=== PATIENT | female | born 2005 | race Two or more races ===

== ENCOUNTER 2025-08-05 12:53 | Outpatient (AMB) | payer OTHER, SELFPAY ==
--- NOTE | 2025-08-05 12:56 | A.OFFPC_ITS ---
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 issues Assess your risk for future medical problems Encourage a healthy lifestyle Update vaccinations and other preventive care services Help you get to know your provider in case of an illness Information Even if you feel fine, you should still see your provider for regular checkups. These visits can help you avoid problems in the future. For example, the only way to find out if you have high blood pressure is to have it checked regularly. High blood sugar and high cholesterol levels also may not have any symptoms in the early stages. A simple blood test can check for these conditions. There are specific times when you should see your provider or receive specific health screenings. The [place] Preventive Services Task Force publishes a list of recommended screenings. Below are screening guidelines for women ages 18 to 39. BLOOD PRESSURE SCREENING Your blood pressure should be checked at least once every 3 to 5 years if: Your blood pressure is in the normal range (top number less than 120 mm Hg and bottom number less than 80 mm Hg) You don't have risk factors for high blood pressure Ask your provider if you need your blood pressure checked more often if: The top number is 120 to 129 mm Hg or the bottom number is 70 to 79 mm Hg You have diabetes, heart disease, kidney problems, are overweight, or have certain other health conditions You have a first-degree relative with high blood pressure You are Black You had high blood pressure during a If the top number is 130 mm Hg or greater or the bottom number is 80 mm Hg or greater, this is considered stage 1 hypertension. Schedule an appointment with your provider to learn how you can reduce your blood pressure. Watch for blood pressure screenings in your area. Ask your provider if you can stop in to have your blood pressure checked. BREAST CANCER SCREENING Experts do not agree about the benefits of breast self-exams in finding breast cancer or saving lives. Talk to your provider about what is best for you. A screening mammogram is not recommended for most women under age 40. Your provider may discuss and recommend mammograms, MRI scans, or ultrasounds if you have an increased risk for breast cancer, such as: A mother or sister who had breast cancer at a young age (most often starting screening earlier than the age the close relative was diagnosed) You carry a high-risk genetic marker CERVICAL CANCER SCREENING Cervical cancer screening should start at age 21 years unless your provider advises otherwise. After the first test: Women ages 21 through 29 should have a Pap test every 3 years. Exoprts do not agree on whether HPV testing is recommended for this age group. Women ages 30 through 65 should be screened with either a Pap test every 3 years or the HPV test every 5 years or both tests every 5 years (called cotesting ). Women who have been treated for precancer (cervical dysplasia) should continue to have Pap tests for 20 years after treatment or until age 65, whichever is longer. If you have had your uterus and cervix removed (total hysterectomy), and you have not been diagnosed with cervical cancer or precancer (high grade cervical neoplasia), you do not need cervical cancer screening. CHOLESTEROL SCREENING Cholesterol screening should begin at: Age 45 for women with no known risk factors for coronary heart disease Age 20 for women with known risk factors for coronary heart disease Repeat cholesterol screening should take place: Every 5 years for women with normal cholesterol levels More often if changes occur in lifestyle (including weight gain and diet) More often if you have diabetes, heart disease, kidney problems, or certain other conditions DIABETES SCREENING You should be screened for diabetes starting at age 35 and then repeated every 3 years if you have no risk factors for diabetes. Screening may need to start earlier and be repeated more often if you have other risk factors for diabetes, such as: You have a first degree relative with diabetes. You are overweight or have obesity. You have high blood pressure, prediabetes, or a history of heart disease. Screening for diabetes should be done if you are planning to become and you are overweight and have other risk factors such as high blood pressure. DENTAL EXAM Go to the dentist once or twice every year for an exam and cleaning. Your dentist will evaluate if you need more frequent visits. EYE EXAM Have an eye exam every 5 to 10 years before age 40. If you have vision problems, have an eye exam every 2 years or more often if re commended by your provider. You should have an eye exam that includes an examination of your retina (back of your eye) at least every year if you have diabetes. IMMUNIZATIONS Commonly needed vaccines include: Flu shot: get one every year. COVID-19 vaccine: ask your provider what is best for you. Tetanus-diphtheria and acellular pertussis (Tdap) vaccine: have one at or after age 19 as one of your tetanus-diphtheria vaccines if you did not receive it as an adolescent. Tetanus-diphtheria: have a booster (or Tdap) every 10 years. Varicella vaccine: receive 2 doses if you never had chickenpox or the varicella vaccine. Hepatitis B vaccine: receive 2, 3, or 4 doses, depending on your exact circumstances. Measles, mumps, and rubella (MMR) vaccine: receive 1 to 2 doses if you are not already immune to MMR. Your provider can tell you if you are immune. Ask your provider about the human papillomavirus (HPV) vaccine if: You have not received the HPV vaccine in the past You have not completed the full vaccine series (you should catch up on this shot) Ask your provider if you should receive other immunizations if you have certain health problems that increase your risk for some diseases such as pneumonia. INFECTIOUS DISEASE SCREENING Women who are sexually active should be screened for chlamydia and gonorrhea up until age 25. Women 25 years and older should be screened for chlamydia and gonorrhea if at high risk. Screening for hepatitis C: All adults ages 18 to 79 should get a one-time test for hepatitis C. people should be screened at every . Screening for human immunodeficiency virus (HIV): All people ages 15 to 65 should get a one-time test for HIV. Depending on your lifestyle and medical history, you may also need to be screened for infections such as syphilis and HIV, as well as other infections. PHYSICAL EXAM All adults should visit their provider from time to time, even if they are healthy. The purpose of these visits is to: Screen for disease Assess your risk of future medical problems Encourage a healthy lifestyle Update your vaccinations and other preventive care services Maintain a relationship with a provider in case of an illness Your height, weight, and BMI should be checked at every exam. During your exam, your provider may ask you about: Depression and anxiety Diet and exercise Alcohol and tobacco use Safety issues, such as using seat belts, smoke detectors, and intimate partner violence Your medicines and risk for interactions SKIN SELF-EXAM Your provider may check your skin for signs of skin cancer, especially if you're at high risk, such as if you: Have had skin cancer before Have close relatives with skin cancer Have a weakened immune system OTHER SCREENING Talk with your provider about colon cancer screening if you have a strong family history of colon cancer or polyps, or if you have had inflammatory bowel disease or polyps yourself. Routine bone density screening of women under 40 is not recommended.
[2025-08-05 13:01] VITALS: BP 118/72; PULSE 86; RESP 12; TEMP 36.6; O2SAT 96; BMI 63.3
--- OUTSIDE RECORDS SUMMARY | 2025-08-05 13:08 | XMS_ITS | Encounter Summary ---
Author Organization [facility] Address [address] [place] [address] Phone Care Team Providers Care Behavioral Psychologist Name Role Phone Tej De Luna MD Primary Care Provider [phone] Encounter Details Date Type Department Care Team (Late st Contact Info) Description 07/17/2017 Conversion Encounter [facility] [address] [place] [address] Social History Tobacco Use Types Packs/Day Years Used Date Smoking Tobacco: Never Comments:Never smoker Comments Unknown Sex and Gender Information Value Date Recorded Sex Assigned at Not on file Legal Sex Female 5:11 PM EDT Gender Identity Female 09/15/2023 11:17 AM EDT Sexual Orientation Straight 07/15/2019 9: 59 AM EDT documented as of this encounter Plan of Treatment Not on file documented as of this encounter Visit Diagnoses Not on filedocumented in this encounter Care Teams Behavioral Psychologist Relationship Specialty Start Date End Date Tej De Luna MD [address] [place] [address] PCP - General Pediatrics 01/25/21 03/25/24 documented as of this encounter
--- OUTSIDE RECORDS SUMMARY | 2025-08-05 13:08 | XMS_ITS | Encounter Summary ---
Author Organization [facility] Address [address] [place], [place] [id number] Phone Care Team Providers Care Pocket Creaser Name Role Phone Tej De Luna MD Primary Care Provider [phone] Encounter Details Date Type Department Care Team (Late st Contact Info) Description 01/01/[address] [facility] [place] Family Medicine [address] [place] [address] Family Medicine, Physician [address] [place], [place] [address] Social History Tobacco Use Types Packs/Day Years Used Date Smoking Tobacco: Never Assessed Comments Unknown Sex and Gender Information Value Date Recorded Sex Assigned at Not on file Legal Sex Female 5:11 PM EDT Gender Identity Female 09/15/2023 11:17 AM EDT Sexual Orientation Straight 07/15/2019 9: 59 AM EDT documented as of this encounter Plan of Treatment Not on file documented as of this encounter Visit Diagnoses Not on filedocumented in this encounter Care Teams Pocket Creaser Relationship Specialty Start Date End Date Tej De Luna MD [address] [place] [address] [place] [id number] PCP - General Pediatrics 01/25/21 03/25/24 documented as of this encounter
--- OUTSIDE RECORDS SUMMARY | 2025-08-05 13:08 | XMS_ITS | Encounter Summary ---
Author Organization [facility] Address [address] [place], [place] [id number] Phone Care Team Providers Care Bulk Plant Supervisor Name Role Phone Tej De Luna MD Primary Care Provider [phone] Encounter Details Date Type Department Care Team (Late st Contact Info) Description 05/12/2015 Documentation [facility] [place] [address] [place] [address] Family Medicine, Physician [address] [place], [place] [address] Social History Tobacco Use Types Packs/Day Years [...] on filedocumented in this encounter Care Teams Bulk Plant Supervisor Relationship Specialty Start Date End Date Tej De Luna MD [address] [place] [address] [place] [address] PCP - General Pediatrics 01/25/21 03/25/24 documented as of this encounter
--- OUTSIDE RECORDS SUMMARY | 2025-08-05 13:08 | XMS_ITS | Encounter Summary ---
Author Organization [facility] Address [address] [place], [place] [address] Phone Care Team Providers Care Tire Beader Maker Name Role Phone Tej De Luna MD Primary Care Provider [phone] Encounter Details Date Type Department Care Team (Late st Contact Info) Description 01/01/2013 Documentation [facility] [place] Family Medicine [address] [place] [address] Family Medicine, Physician [address] [place], [place] [address] Social History Tobacco Use Types Packs/Day Years [...] on filedocumented in this encounter Care Teams Tire Beader Maker Relationship Specialty Start Date End Date Tej De Luna MD [address] [place] [address] [place] [address] PCP - General Pediatrics 01/25/21 03/25/24 documented as of this encounter
--- OUTSIDE RECORDS SUMMARY | 2025-08-05 13:08 | XMS_ITS | Encounter Summary ---
Author Organization [facility] Address [address] [place], [place] [address] Phone Care Team Providers Care Security Assistant Name Role Phone Tej De Luna MD Primary Care Provider [phone] Encounter Details Date Type Department Care Team (Late st Contact Info) Description 11/07/2014 Documentation [facility] Family Medicine [address] [place] [address] Family Medicine, Physician [address] [place], [place] [address] Social History Tobacco Use Types Packs/Day Years [...] on filedocumented in this encounter Care Teams Security Assistant Relationship Specialty Start Date End Date Tej De Luna MD [address] [place] [address] [place] [address] PCP - General Pediatrics 01/25/21 03/25/24 documented as of this encounter
--- OUTSIDE RECORDS SUMMARY | 2025-08-05 13:08 | XMS_ITS | Encounter Summary ---
Author Organization [facility] Address [address] [place], [place] [phone] Phone Care Team Providers Care Customs Verifier Name Role Phone Tej De Luna MD Primary Care Provider [phone] Encounter Details Date Type Department Care Team (Late st Contact Info) Description 02/14/2014 [place]ation [facility] [place] [address] [place] [address] Family Medicine, Physician [address] [place], [place] [address] Social History Tobacco Use Types Packs/Day Years [...] on filedocumented in this encounter Care Teams Customs Verifier Relationship Specialty Start Date End Date Tej De Luna MD [address] [place] [address] [place] [address] PCP - General Pediatrics 01/25/21 03/25/24 documented as of this encounter
--- OUTSIDE RECORDS SUMMARY | 2025-08-05 13:08 | XMS_ITS | Encounter Summary ---
Author Organization [facility] Address [address] [place] [address] Phone Care Team Providers Care Mill Manager Name Role Phone Tej De Luna MD Primary Care Provider [phone] Encounter Details Date Type Department Care Team (Late st Contact Info) Description 07/23/2017 Documentation [facility] [place] [address] [place] [address] Family Medicine, Physician [address] [place] [address] Social History Tobacco Use Types Packs/Day Years [...] on filedocumented in this encounter Care Teams Mill Manager Relationship Specialty Start Date End Date Tej De Luna MD [address] [place] [address] [place] [address] PCP - General Pediatrics 01/25/21 03/25/24 documented as of this encounter
--- OUTSIDE RECORDS SUMMARY | 2025-08-05 13:08 | XMS_ITS | Encounter Summary ---
Author Organization [facility] Address [address] [place], [place] [address] Phone Care Team Providers Care Orchard Sprayer Name Role Phone Tej De Luna MD Primary Care Provider [phone] Encounter Details Date Type Department Care Team (Late st Contact Info) Description 08/14/2011 Documentation [facility] [place] [address] [place] [address] Family Medicine, Physician [address] [place], [place] [address] Social History Tobacco Use Types Packs/Day Years [...] on filedocumented in this encounter Care Teams Orchard Sprayer Relationship Specialty Start Date End Date Tej De Luna MD [address] [place] [address] [place] [address] PCP - General Pediatrics 01/25/21 03/25/24 documented as of this encounter
--- OUTSIDE RECORDS SUMMARY | 2025-08-05 13:08 | XMS_ITS | Encounter Summary ---
Author Organization [facility] Address [address] [place] [address] Phone Care Team Providers Care Service Station Helper Name Role Phone Tej De Luna MD Primary Care Provider [phone] Encounter Details Date Type Department Care Team (Late st Contact Info) Description 07/23/2017 [place]ation [facility] [place] [address] [place] [address] Family Medicine, Physician [address] [place] [address] Social History Tobacco Use Types Packs/Day Years [...] on filedocumented in this encounter Care Teams Service Station Helper Relationship Specialty Start Date End Date Tej De Luna MD [address] [place] [address] [place] [address] PCP - General Pediatrics 01/25/21 03/25/24 documented as of this encounter
--- OUTSIDE RECORDS SUMMARY | 2025-08-05 13:08 | XMS_ITS | Encounter Summary ---
Author Organization [facility] Address [address] [place], [place] [address] Phone Care Team Providers Care Sorter Packer Name Role Phone Tej De Luna MD Primary Care Provider [phone] Encounter Details Date Type Department Care Team (Late st Contact Info) Description 02/04/2013 Documentation [facility] [place] [address] [place] [address] Family Medicine, Physician [address] [place], [place] [address] Social History Tobacco Use Types Packs/Day Years [...] on filedocumented in this encounter Care Teams Sorter Packer Relationship Specialty Start Date End Date Tej De Luna MD [address] [place] [address] [place] [address] PCP - General Pediatrics 01/25/21 03/25/24 documented as of this encounter
--- OUTSIDE RECORDS SUMMARY | 2025-08-05 13:08 | XMS_ITS | Clinical Summary ---
Author Organization [facility] Address [address] [place] [address] Phone Care Team Providers Care Wash Mill Operator Name Role Phone Unavailable Primary Care Provider Unavailabl e Allergies Active Allergy Reactions Criticality Noted Date Comments Amoxicillin Other reaction(s): Medications levothyroxine 175 MCG tablet Take 175 mcg by mouth once daily. 1 Active Alcohol Swabs (B-D SINGLE USE SWABS REGULAR) pads TO CLEAN SKIN BEFORE BLOOD GLUCOSE CHECKS. MAX 6 TIMES A DAY 1 Active Blood Glucose Monitoring Suppl (FreeStyle Lite) device 1 Active FREESTYLE LITE test strip 1 Active Lancets (freestyle) lancets 1 Active Trulicity 1.5 MG/0.5ML solution pen-injector ADMINISTER 1.5 MG UNDER THE SKIN EVERY WEEK. ROTATE INJECTION SITES 2 Active Ventolin HFA 108 (90 Base) MCG/ACT inhalerIndication s:Mild intermittent asthma without complication Inhale 2 puffs every 4 (four) hours as needed for wheezing or shortness of breath. 1 Units 3 Active albuterol HFA (ProAir HFA) 108 (90 Base) MCG/ACT inhalerIndication s:Mild intermittent asthma without complication Inhale 2 puffs every 4 (four) hours as needed for wheezing or shortness of breath. 1 Units 3 Active ibuprofen 200 MG capsuleIndication s:Acute otitis externa of both ears, unspecified type 3-4 capsules every 8 hours as needed for pain 120 capsule 1 3 Active Active Problems Patient Care Coordination No te Formatting of this note migh t be different from the original. 09/20/20 Shira is but foster mother does not know. [facility] Problem Noted Date Diagnosed Date Acquired acanthosis nigricans 09/21/2022 Anemia 09/21/2022 Wears glasses 09/21/2022 Type 2 diabetes mellitus wit hout complication, without long-term current use of insulin 08/21/2021 Overview (08/21/2021): Diagnosed 08/2021. Followed by [facility]. Assessment & Plan (06/07/2022 10:05 AM EDT): See above- she will call Wally CAROLYN for FU Mixed hyperlipidemia 01/26/2019 Overview (01/26/2019): TG 155 (high 07/2018), HDL 35 (low 07/2018) Assessment & Plan (01/26/2019 1:35 PM EST): Saw Endo & referred to spring maker Healthy diet info given Exercise recommended They will follow in future DM screen was negative but Pt at high risk Obesity due to excess calories 01/26/2018 Overview (01/05/2020): Used to Followed at [facility]. had issues with no shows 12/2019: Wally did sleep study & was normal Assessment & Plan (01/27/2020 8:11 AM EST): Followed by Wally Lo started Topamax to see if it would decrease her appetite. Dose was increased at last Endo appt. Has FU next Month Patient does not think the Topamax did anything Assessment & Plan (01/26/2019 1:32 PM EST): No longer at [facility] Wally referred her to spring maker Assessment & Plan (01/26/2018 2:28 PM EST): Awesome weight loss since moving in with Great Aunt Mild intermittent asthma without complication Overview (01/26/2018): uses albuterol prn. Off pulmicort since 2012 Assessment & Plan (01/27/2020 8:11 AM EST): No issues in years Assessment & Plan (01/26/2018 2:51 PM EST): No issues Psychosocial stressors 01/26/2018 Overview (06/07/2022): Mom in custodial 2016. Pt living on her own w/ 18mo old as of Decided to keep her DCF social services aide for support Assessment & Plan (06/07/2022 10:06 AM EDT): She decided to keep her DCF social services aide for supports Also has help from her GM Assessment & Plan (08/10/2020 2:36 PM EDT): 08/10/2020 Kenzie Peterson [facility] [phone] calling for update - requested date of last PE, concerns listed, medications teen is taking, and current with vaccinations- information given Kenzie gave me a new contact number: for teen [phone] Assessment & Plan (05/10/2020 3:18 PM EDT): Will contact [facility] to find out what are legal responsibility of notification is. Patient is asking to not notify though I think it would be best to have DCF help Patient to get services & housing especially since she does not want her Maid Housekeeper to know Congenital hypothyroidism without goiter 010 Overview (01/26/2018): Followed by Lauro Lo. On Synthyroid Assessment & Plan (06/07/2022 10:05 AM EDT): Recently seen in ED for VGE All better- great! Discussed Endo FU- missed 2 appointments Gave her last no-show letter so she can call and book FU CAROLYN as she needs her synthroid RFed(ED gave her one mo supply); she was taking her brother's 125mcg dose for awhile Gave her options for adult Endo if unable to see Wally @ [facility] Has PE booked in AUG- discussed transition to adult care now that she is mom to an 18mo old Assessment & Plan (05/10/2020 3:18 PM EDT): Patient to call Endo today to report + Assessment & Plan (01/27/2020 8:10 AM EST): Saw Wally 12/2019. On synthyroid 125 mcg QD TFTs were repeated by Endo (I do not have the results). TFTs on 10/2019 had TSH off 13. Patient says she is compliant with meds but Endo suspects this may not be the case Patient says she forgets to take meds on weekends due to her schedule being off Assessment & Plan (01/26/2019 1:31 PM EST): Saw Wally 12/04/2018 TSH was 8 So synthyroid dose increased from 100 mcg QD to 125 mcg daily Repeat labs in 6-8 weeks from visit date Assessment & Plan (01/26/2018 2:37 PM EST): Saw Wally earlier this month. Synthroid dose needed to be decreased to 100 mcg. FU in 8 weeks Resolved Problems Problem Noted Date Diagnosed Date Resolved Date Encounter for counseling for care management of patient with chronic conditions and complex health needs using nurse-based model 05/10/2020 02/07/2022 Assessment & Plan (05/10/2020 3:22 PM EDT): Spoke with MEDICAL PROTECTIVE SIGNAL OPERATIONS SUPERVISOR who will help with transportation, housing, DCF, visit & endocrine visit Needs EVELYN urine STI screen & UHCG done in office this week Immunizations Immunization Administration Dates Next Due COVID-19 Pfizer, bivalent, 12+ years 09/13/2022 COVID-19 Pfizer, andreina-sucros e, 12+ years 06/07/2022 DTaP 5 10/21/2007, 4,2003,07/05,2003 H1N1 11/23/2009,10/23/2009 HPV Vaccine 9 Valent 08/07/2016,08/02/2015 Hep A, ped/adol 08/02/2015,11/07/2014 Hep B, ped/adol 2003,2003,2003 Hib (PRP-T) 10/01/2004, 3,2003,05/16 IPV 10/21/2007, 4,2003,05/16 Influenza Split 10/29/2012,10/16/2011,12/19/2010 Influenza, injectable, quadrivalent 11/07/2014 Influenza, injectable, quadr ivalent, preservative free 09/15/2023,09/13/2022,01/27/2020,01/26,01/26/2018,08/07/2016,08/02/2015 ,02/09/2014 Influenza, injectable, trivalent 020,11/23/2009,09/28/2008,10/21 MMR 03/05/2004 MMRV 10/21/2007 Meningococcal Conj (Menactra) MCV4P 07/15/2019,0 08/02/2015 Pneumococcal Conjugate 10/01/2004,2002,2003,05/16 Tdap 09/15/2020,08/02/2015 Varicella 03/05/2004 Family History Medical History Relation Name Comments Substance abuse Father Obesity Mother Obesity Sister Thyroid disease Sister Relation Name Status Comments Brother Dre Diane Alive Brother: Hypot hyroidism, obesity Daughter Anelis Viera Alive Father Father: Hyperte nsion, Diabetes mellitus Mother Alive Mother: Obesity Other Family history of Sudden /AK under 55, Family history of Diabetes mellitus, Family history of Migraines Paternal Grandmother Paterna l grandmother: Diabetes mellitus Sister Alive Sister: Hyperli pidemia, asthma Social History Tobacco Use Types Packs/Day Years Used Date Smoking Tobacco: Never Smokeless Tobacco: Never Comments:Never smoker Alcohol Use Standard Drinks/Week Comments No 0 (1 standard drink = 0.6 oz pur e alcohol) Hunger/Food Answer Date Recorded In the last 12 months, did y ou or your family ever eat less than you felt you should because there wasn't enough money for food? No 09/13/2022 Stable Housing Answer Date Recorded Are you worried that in the next 2 months you may not have stable housing? No 09/13/2022 Transportation Concerns Answer Date Rec orded In the last 12 months, have you or your family ever had to go without healthcare because you didn't have a way to get there? No 09/13/2022 Hazards in Home Answer Date Recorded Think about the place you li ve. Do you have problems with any of the following? Pests (mice or roaches), mold, no/not working smoke detectors, water leaks, no window guards. No 2021 Financing Utilities Answer Date Recorde d In the last 12 months, has t he electric, gas, oil, or water company threatened to shut off your services in your home? No 09/13/2022 Safety at Home Answer Date Recorded Are you or your family worried about feeling saf e in your home? No 09/13/2022 Outside Support Answer Date Recorded Do you feel that you need mo re support from other people or programs to help you care for yourself or your family? No 09/13/2022 Understanding Health Concerns Answer Da te Recorded Do you need help understandi ng your or your child's healthcare needs (diagnosis, medications, plan, etc.)? No 09/13/2022 Financing Health Concerns Answer Date R ecorded In the last 12 months, was t here a time when your child needed to see a doctor or get medications or supplies but could not because of cost? No 09/13/2022 Missing School or Work Answer Date Isaiah rded Did you or your child miss s chool or work because of a health problem that could have been avoided? No 09/13/2022 Comments No Sex and Gender Information Value Date Recorded Sex Assigned at Not on file Legal Sex Female 5:11 PM EDT Gender Identity Female 09/15/2023 11:17 AM EDT Sexual Orientation Straight 07/15/2019 9: 59 AM EDT Last Filed Vital Signs Vital Sign Reading Time Taken Comments Blood Pressure 124/73 08/02/2021 11:40 AM EDT Pulse 112 08/02/2021 11:40 AM EDT Temperature 37.2 C (99 F) 09/15/2023 1:37 PM EDT Respiratory Rate - - Oxygen Saturation - - Inhaled Oxygen Concentration - - Weight 163 kg (360 lb 3.2 oz) 09/15/2023 1:37 PM EDT Height 157.5 cm (5' 2 ) 09/13/2022 3:28 PM EDT Body Mass Index 65.88 09/13/2022 3:28 PM EDT Plan of Treatment Health Maintenance Due Date Last Done Comments Men B Vaccine (1 of 2 - Standard) 2019 Influenza Vaccines (#1) 2025 09/15/20 23, 09/13/2022, 09/15/2020, Additional history exists COVID-19 Vaccine (5 - 2024-2 6 season) 2025 09/13/2022, 06/07/2022, 04/22/2021, Additional history exists DTaP,Tdap,and Td Vaccines (8 - Td or Tdap) 09/15/2030 09/15/2020, 08/02/2015, 10/21/2007, Additional history exists Hepatitis B Vaccines Completed 2003, 2003, 2003 HIB Vaccines Completed 10/01/2004, 09/01, 2003, Additional history exists Pneumococcal Vaccine Completed 10/01/2004, 2003, 2003, Additional history exists IPV Vaccines Completed 10/21/2007, 05/2004, 2003, Additional history exists MMR Vaccines Completed 10/21/2007, 03/05/2004 Varicella Vaccines Completed 10/21/2007, 03/05/2004 Hepatitis A Vaccines Completed 08/02/2015, 11/07/20 14 HPV Vaccines Completed 08/07/2016, 08/02/2015 Meningococcal Vaccine Completed 07/15/2019, 015 Procedures * Due to [place] law, this organization might not be sharing sensitive test results. Procedure Name Priority Date/Time Associated Diagnosis Comments CHLAMYDIA AND GONORRHEA, AMPLIFIED Routine 09/13/2022 4:20 PM EDT Special screening examination for chlamydial disease from Last 3 Months or Most Recently Relevant to Health Maintenance Results * Due to [place] law, this organization might not be sharing sensitive test results. * Chlamydia and Gonorrhoea, Amplified (09/13/2022 4:20 PM EDT) Chlamydia Trachomatis, DNA Probe NEGATIVE (NEG) [facility] Comment: No Chlamydia Trachomatis RNA detected in this patient's sample (REFERENCE RANGE/NORMAL VALUE: NOT DETECTED) Note: This test uses crew truck driver- mediated amplification method to detect rRNA from C. Trachomatis URINE GC AMP PROBE NEGATIVE (NEG) [facility] Comment: No Neisseria Gonorrhoeae RNA detected in this patient's sample (REFERENCE RANGE/NORMAL VALUE: NOT DETECTED) NOTE: This test uses crew truck driver-mediated amplification method to detect rRNA from N.Gonorrhoeae. A negative result does not preclude infection. In the case of a negative urine result, testing of an endocervical(female) or urethral (male) specimen is recommended if there is high clinical suspicion of infection. Due to very high sensitivity of Nucleic Acid Amplification Test, false positive results may occur. Therefore, specimen handling is extremely important. In patients in whom the disease is unlikely, additional sample for testing should be considered after an initial positive result. The performance characteristics of this test have not been evaluated in children. The Aptima Combo2 assay is not intended for the evaluation of suspected sexual abuse or for other medico-legal indications. The ordering provider should assess if the patient had consensual sex without risk of sexual abuse. Consult the [facility] if needed. Contact phone number . Therapeutic failure or success cannot be determined with the Aptima Combo2 assay since nucleic acid may persist following appropriate antimicrobial therapy. The Centers for Disease Control and Prevention (CDC) recommends confirmatory retesting using culture or a different nucleic acid amplification test when positive results occur, if indicated. Testing performed or reported by [facility], a Service of [facility], [address] [place] [address] [facility] [address] Fernando Chaudhari MD, Milieu Coordinator [facility]# [id number] Urine (Urine) 09/13/2022 4:2 0 PM EDT 09/14/2022 1:56 PM EDT us Tej De Luna MD LAB MICROBIOLOGY - GENERAL ORDER SAYDA Final Result [facility] from Last 3 Months or Most Recently Relevant to Health Maintenance
--- OUTSIDE RECORDS SUMMARY | 2025-08-05 13:08 | XMS_ITS | Encounter Summary ---
Author Organization [facility] Address [address] [place] [phone] Phone Care Team Providers Care Critical Care Rn Name Role Phone Tej De Luna MD Primary Care Provider [phone] Reason for Visit * Reason Onset Date Comments Med Refill 08/17/2023 Encounter Details Date Type Department Care Team (Late st Contact Info) Description 08/17/2023 Refill [facility] [address] [place] [address] Tej De Luna MD [address] [place] [address] Mild intermittent asthma without complication Social History Tobacco Use Types Packs/Day Years [...] AM EDT documented as of this encounter Miscellaneous Notes * Telephone Encounter - Tawny Duffy LPN - 08/18/2023 12:29 PM EDT Spoke to patient she has appt on Friday this week with her Endocrine Doctor. She will call her Endocrine doctor today to order Blood Glucose supplies for her. Patient needs new Ventolin inhaler. Last pe 09/21 documented in this encounter Plan of Treatment Not on file documented as of this encounter Visit Diagnoses Diagnosis Mild intermittent asthma without complication documented in this encounter Care Teams Critical Care Rn Relationship Specialty Start Date End Date Tej De Luna MD [address] [place] [address] [place] [address] PCP - General Pediatrics 01/25/21 03/25/24 documented as of this encounter
--- OUTSIDE RECORDS SUMMARY | 2025-08-05 13:08 | XMS_ITS | Encounter Summary ---
Author Organization [facility] Address [address] [place], [place] [phone] Phone Care Team Providers Care Subgrade Roller Operator Name Role Phone Tej De Luna MD Primary Care Provider [phone] Encounter Details Date Type Department Care Team (Late st Contact Info) Description 05/12/2015 Documentation [facility] Family Medicine [address] [place] [address] Family Medicine, Physician [address] [place], [place] [address] Social History Tobacco Use Types Packs/Day Years [...] on filedocumented in this encounter Care Teams Subgrade Roller Operator Relationship Specialty Start Date End Date Tej De Luna MD [address] [place] [address] [place] [address] PCP - General Pediatrics 01/25/21 03/25/24 documented as of this encounter
--- OUTSIDE RECORDS SUMMARY | 2025-08-05 13:08 | XMS_ITS | Encounter Summary ---
Author Organization [facility] Address [address] [place] [address] Phone Care Team Providers Care Ui Ux Developer Name Role Phone Tej De Luna MD Primary Care Provider [phone] Reason for Visit * Reason Comments Med Refill Encounter Details Date Type Department Care Team (Late st Contact Info) Description 02/12/2018 Refill [facility] [place] [address] [place] [address] Leeann Martin MD [address] [place] [address] Mild intermittent asthma without complication (Primary Dx) Social History Tobacco Use Types Packs/Day Years Used Date Smoking Tobacco: Never Smokeless Tobacco: Never Comments:Never smoker Alcohol Use Standard Drinks/Week Comments No 0 (1 standard drink = 0.6 oz pur e alcohol) Comments Unknown Sex and Gender Information Value Date Recorded Sex Assigned at Not on file Legal Sex Female 5:11 PM EDT Gender Identity Female 09/15/2023 11:17 AM EDT Sexual Orientation Straight 07/15/2019 9: 59 AM EDT documented as of this encounter Miscellaneous Notes * Telephone Encounter - Tawny Duffy LPN - 02/13/2018 8:46 AM EDT MOm called back. Shira lost inhaler. Mom called back Shira asthma seems ok does cough on and off. * Telephone Encounter - Tawny Duffy LPN - 02/13/2018 8:38 AM EDT Left message for parent to call [facility]PA back. Need update on asthma. Last pe 01/18 Last refill 11/16 documented in this encounter Plan of Treatment Not on file documented as of this encounter Visit Diagnoses Diagnosis Mild intermittent asthma without complication- Primary documented in this encounter Care Teams Ui Ux Developer Relationship Specialty Start Date End Date Tej De Luna MD [address] [facility] [place] [address] PCP - General Pediatrics 01/25/21 03/25/24 documented as of this encounter
--- OUTSIDE RECORDS SUMMARY | 2025-08-05 13:08 | XMS_ITS | Encounter Summary ---
Author Organization [facility] Address [address] [place] [address] Phone Care Team Providers Care Cargo Surveyor Name Role Phone Tej De Luna MD Primary Care Provider [phone] Encounter Details Date Type Department Care Team (Late st Contact Info) Description 01/27/2020 Patient Outreach [facility] [address] [address] [address] Zimm[place] Social History Tobacco Use Types Packs/Day Years [...] there wasn't enough money for food? No 01/27/2020 Stable Housing Answer Date Recorded Are you worried that in the next 2 months you may not have stable housing? No 01/27/2020 Transportation Concerns Answer Date Rec orded In the last 12 months, have you or your family ever had to go without healthcare because you didn't have a way to get there? No 01/27/2020 Hazards in Home Answer Date Recorded Think about the place you li ve. Do you have problems with any of the following? Pests (mice or roaches), mold, no/not working smoke detectors, water leaks, no window guards. No 2019 Financing Utilities Answer Date Recorde d In the last 12 months, has t he electric, gas, oil, or water company threatened to shut off your services in your home? No 01/27/2020 Safety at Home Answer Date Recorded Are you or your family worried about feeling saf e in your home? No 01/27/2020 Outside Support Answer Date Recorded Do you feel that you need mo re support from other people or programs to help you care for yourself or your family? No 01/27/2020 Understanding Health Concerns Answer Da te Recorded Do you need help understandi ng your or your child's healthcare needs (diagnosis, medications, plan, etc.)? No 01/27/2020 Financing Health Concerns Answer Date R ecorded In the last 12 months, was t here a time when your child needed to see a doctor or get medications or supplies but could not because of cost? No 01/27/2020 Missing School or Work Answer Date Isaiah rded Did you or your child miss s chool or work because of a health problem that could have been avoided? No 01/27/2020 Comments No Sex and Gender Information Value Date Recorded Sex Assigned at Not on file Legal Sex Female 5:11 PM EDT Gender Identity Female 09/15/2023 11:17 AM EDT Sexual Orientation Straight 07/15/2019 9: 59 AM EDT documented as of this encounter Plan of Treatment Not on file documented as of this encounter Visit Diagnoses Not on filedocumented in this encounter Care Teams Cargo Surveyor Relationship Specialty Start Date End Date Tej De Luna MD [address] [place] [address] [place] [address] PCP - General Pediatrics 01/25/21 03/25/24 documented as of this encounter
--- OUTSIDE RECORDS SUMMARY | 2025-08-05 13:08 | XMS_ITS | Encounter Summary ---
Author Organization [facility] Address [address] [place], [place] [phone] Phone Care Team Providers Care Plumber Pipe Fitting Name Role Phone Tej De Luna MD Primary Care Provider [phone] Encounter Details Date Type Department Care Team (Late st Contact Info) Description 10/06/2014 Documentation [facility] Family Medicine [address] [place] [address] Family Medicine, Physician [address] [place], [place] [address] Social History Tobacco Use Types Packs/Day Years [...] on filedocumented in this encounter Care Teams Plumber Pipe Fitting Relationship Specialty Start Date End Date Tej De Luna MD [address] [place] [address] [place] [address] PCP - General Pediatrics 01/25/21 03/25/24 documented as of this encounter
--- OUTSIDE RECORDS SUMMARY | 2025-08-05 13:09 | XMS_ITS | Encounter Summary ---
Author Organization [facility] Address [address] [place], [place] [phone] Phone Care Team Providers Care Blending Tank Helper Name Role Phone Tej De Luan MD Primary Care Provider [phone] Encounter Details Date Type Department Care Team (Late st Contact Info) Description 12/22/2013 Documentation [facility] Family Medicine [address] [place] [address] Family Medicine, Physician [address] [place], [place] [address] Social History Tobacco Use Types Packs/Day Years [...] on filedocumented in this encounter Care Teams Blending Tank Helper Relationship Specialty Start Date End Date Tej De Luna MD [address] [place] [address] [place] [address] PCP - General Pediatrics 01/25/21 03/25/24 documented as of this encounter
--- OUTSIDE RECORDS SUMMARY | 2025-08-05 13:09 | XMS_ITS | Encounter Summary ---
Author Organization [facility] Address [address] [place], [place] [phone] Phone Care Team Providers Care Furniture Arranger Name Role Phone Tej De Luna MD Primary Care Provider [phone] Encounter Details Date Type Department Care Team (Late st Contact Info) Description 11/03/2013 Documentation [facility] [place] [address] [place] [address] Family Medicine, Physician [address] [place], [place] [address] Social History Tobacco Use Types Packs/Day Years [...] on filedocumented in this encounter Care Teams Furniture Arranger Relationship Specialty Start Date End Date Tej De Luna MD [address] [place] [address] [place] [address] PCP - General Pediatrics 01/25/21 03/25/24 documented as of this encounter
--- OUTSIDE RECORDS SUMMARY | 2025-08-05 13:09 | XMS_ITS | Encounter Summary ---
Author Organization [facility] Address [address] [place] [address] Phone Care Team Providers Care Scrap Sawyer Name Role Phone Tej De Luna MD Primary Care Provider [phone] Reason for Visit * Reason Comments Med Refill Encounter Details Date Type Department Care Team (Late st Contact Info) Description 07/20/2020 Refill [facility] [place] [address] [place] [address] Leeann Martin MD [address] [place] [address] Chlamydia Social History Tobacco Use Types Packs/Day Years [...] as of this encounter Visit Diagnoses Diagnosis Chlamydia Other specified chlamydial infection, in conditions classified elsewhere and of unspecified site documented in this encounter Care Teams Scrap Sawyer Relationship Specialty Start Date End Date Tej De Luna MD [address] [facility] [place]AMARIS Diaz [address] PCP - General Pediatrics 01/25/21 03/25/24 documented as of this encounter
--- OUTSIDE RECORDS SUMMARY | 2025-08-05 13:09 | XMS_ITS | Encounter Summary ---
Author Organization [facility] Address [address] [place], [place] [address] Phone Care Team Providers Care Scutcher Tender Name Role Phone Tej De Luna MD Primary Care Provider Encounter Details Date Type Department Care Team (Late st Contact Info) Description 12/17/2013 Documentation [facility] [place] [address] [place] [address] Family Medicine, Physician [address] [place], [place] [address] Social History Tobacco Use Types Packs/Day Years [...] on filedocumented in this encounter Care Teams Scutcher Tender Relationship Specialty Start Date End Date Tej De Luna MD [address] [place] [address] [place] [address] PCP - General Pediatrics 01/25/21 03/25/24 documented as of this encounter
--- OUTSIDE RECORDS SUMMARY | 2025-08-05 13:09 | XMS_ITS | Encounter Summary ---
Author Organization [facility] Address [address] [place], [place] [address] Phone Care Team Providers Care Health And Wellness Director Name Role Phone Tej De Luna MD Primary Care Provider [phone] Encounter Details Date Type Department Care Team (Late st Contact Info) Description 10/10/2014 Documentation [facility] [place] Family Medicine [address] [place] [address] Family Medicine, Physician [address] [place], [place] [address] Social History Tobacco Use Types Packs/Day Years [...] on filedocumented in this encounter Care Teams Health And Wellness Director Relationship Specialty Start Date End Date Tej De Luna MD [address] [place] [address] [place] [address] PCP - General Pediatrics 01/25/21 03/25/24 documented as of this encounter
== END 2025-08-05 13:39 | disposition home or self-care (01) ==
LOC: HO.HMCFM 12:54
PROVIDERS: PCP Nurse Practitioner Family; Visit Provider Nurse Practitioner Family
DX: Z00.00 Encounter for general adult medical examination without abnormal findings (principal); E03.9 Hypothyroidism, unspecified; Z76.89 Persons encountering health services in other specified circumstances; Z68.44 Body mass index [BMI] 60.0-69.9, adult; F43.10 Post-traumatic stress disorder, unspecified; Z97.5 Presence of (intrauterine) contraceptive device; Z87.898 Personal history of other specified conditions; Z23 Encounter for immunization

== ENCOUNTER 2025-08-05 12:53 | Outpatient (REF) | payer OTHER, SELFPAY ==
[2025-08-05 18:03] LABS: Mean Corpuscular Volume 89.4 fL (80.0-98.0); NRBC Abs Auto 0.000 X10*3/uL (0.0-0.012); NRBC Pct Auto 0.0 /100WBC (0.0-0.2)
[2025-08-05 18:06] LABS: Hematocrit 39.6 % (37.0-47.0); Hemoglobin 12.9 g/dl (12.0-16.0); Mean Corpuscular HGB Conc 32.6 g/dl (31.0-35.0); Mean Corpuscular Hemoglobin 29.1 pg (27.0-33.0); Platelet Count 161 X10*3/uL (160-400); Red Blood Count 4.43 X10*6/uL (4.20-5.50); White Blood Count 9.5 X10*3/uL (4.8-10.8)
[2025-08-05 18:08] LABS: Total Hemoglobin (HGBA1C) 3372.4477 umol/L
[2025-08-05 18:15] LABS: PLT ABN DIST 1
[2025-08-05 18:21] LABS: Appearance Urine Clear; Glucose Urine UA Negative (Negative); PH 7.5 (5.0-9.0); Specific Gravity - Urine 1.025 (1.005-1.025); UMIC TRIGGER UACC YES
[2025-08-05 18:28] LABS: Microalbum/Creatinine Ratio Ur 7.7 ug/mg cr (<30)
[2025-08-05 18:31] LABS: Alanine Aminotransferase 33 U/L (0-31); Albumin Level 3.9 g/dL (3.5-5.0); Alkaline Phosphatase 73 U/L (39-117); Anion Gap 13 (12-20); Aspartate Amino Transferase 24 U/L (5-31); Blood Urea Nitrogen 9 mg/dL (9-16); Calcium 8.7 mg/dL (8.4-10.2); Carbon Dioxide 25 mmol/L (22-29); Chloride 107 mmol/L (96-108); Cholesterol 161 mg/dL (<200); Estimated Glomerular Filt Rate > 60; HDL Cholesterol 31 mg/dL (>40); Potassium 3.9 mmol/L (3.3-5.1); Sodium 141 mmol/L (135-145); Total Protein 7.1 g/dL (6.5-8.0); Triglycerides 200 mg/dL (<150)
[2025-08-05 18:52] LABS: Folate 6.8 ng/mL (> or = 4.0); Vitamin B12 320 pg/mL (200-900)
[2025-08-05 21:28] LABS: CT PCR Urine NOT DETECTED (Not Detect.); NG PCR Urine NOT DETECTED (Not Detect.)
[2025-08-08 03:36] LABS: Syphilis Screen Nonreactive (Nonreactive)
== END 2025-08-05 12:54 | disposition home or self-care (01) ==
LOC: HO.WFDLDS 12:53
PROVIDERS: PCP Nurse Practitioner Family; Visit Provider Nurse Practitioner Family
DX: Z23 Encounter for immunization (principal); Z76.89 Persons encountering health services in other specified circumstances; E03.9 Hypothyroidism, unspecified; Z00.00 Encounter for general adult medical examination without abnormal findings; Z11.3 Encounter for screening for infections with a predominantly sexual mode of transmission; R30.0 Dysuria; Z68.44 Body mass index [BMI] 60.0-69.9, adult; Z79.85 Long-term (current) use of injectable non-insulin antidiabetic drugs; Z79.890 Hormone replacement therapy; Z97.5 Presence of (intrauterine) contraceptive device; Z87.898 Personal history of other specified conditions; F43.10 Post-traumatic stress disorder, unspecified
CPT/HCPCS: 80053; 80061; 81001; 82043; 82306; 82570; 82607; 82746; 83036; 84443; 85027; 86780; 87491; 87591; 90471; 90715; 96127; 99202; 99385

== ENCOUNTER 2025-09-16 08:09 | Outpatient (AMB) | payer OTHER, SELFPAY ==
--- NOTE | 2025-09-16 08:26 | A.OFFVIS_ITS ---
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: Details: Start time: 8.15am, End time: 9am ?I spent 40 minutes speaking with the patient on the phone plus an additional 5 minutes reviewing and updating records for a total of 45 minutes HPI Comments Details: Previous weight loss efforts: Trulicity for 3 years: lost 40lbs but regained 10 lbs back) Wakes up: 6am, Sleeps: 10pm Breakfast: 7.30am ([place] yogurt, or bagel with cream cheese, muffin) Lunch: 11.30am (rice with pork chop, turkey sandwich and chips) Dinner: 7pm (rice with chicken and pork chops) Snacks: 4pm (chips) Exercise: none Beverages: Iced coffee (one/d), Tea: none , Soda: regular Coke (2 cans/d) Juice: Gatorade regular daily, ETOH: a few times per year [facility] Medical History (Updated 09/16/25 @ 08:30 by Valerio Olivares MD) Hypothyroid Obstructive sleep apnea on CPAP Morbid obesity Eczema Asthma Thyroid disorder Surgical History (Updated 08/05/25 @ 13:06 by Maikel Houston MA) Previous section Family History (Updated 08/05/25 @ 13:10 by Maikel Houston MA) Father Asthma Diabetes Thyroid disorder Mother Thyroid disorder Brother Thyroid disorder Sister Thyroid disorder Other HTN (hypertension) Social History (Updated 08/05/25 @ 13:08 by Maikel Houston MA) Household Members: Other Household Members Other:: father Housing: Apartment 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 Do you presently have visiting nurse or other home services: No Alcohol intake: never Patient Tobacco Use Status: Never used Tobacco e-Cigarette/Vaping Use: Never Used Second Hand Smoke Exposure: No service: No Current occupational status: student Cognitive needs: No Hearing needs: No Vision needs: Yes (wear glasses) Physical Exam Vital Signs: BMI result Body Mass Index 63.2 Telehealth Telehealth Telehealth Platform: Telephone Location of provider rendering services: practice address Location of patient: address on file Patient Identification confirmed using: Name, : Yes Telehealth method: voice only Patient verbally consented to treatment: Yes Patient verbally consented to billing insurance company: Yes Patient informed of any privacy concerns related to visit: Yes Minutes spent on Phone/Video with Pt.: 45 Assessment & Plan Assessment & Plan (1) Morbid obesity: Code(s): E66.01 - Morbid (severe) obesity due to excess calories Category: Medical Plan: 1.? Plan for lap sleeve gastrectomy. If diaphragmatic or ventral hernias are present at time of surgery, these will be repaired laparoscopically as well. I emphasized the importance of close follow-up, adherence to instructions and good communication. The surgery does not replace the need to change your lifestlyle which is the cause of the obesity problem. The surgery provides the motivation to try again to change your lifestyle, it reduces the appetite and make the transition to a better lifestyle easier and doubles the amount of weight you would lose compared to doing the lifestyle change without the surgery. You will need to be on a liquid diet with protein shakes for 2 weeks before surgery to maximize weight loss and boost your nutritional status to recover better from surgery and also for the first two weeks after surgery to let the stomach heal before we introduce other foods. After the first 2 weeks we will introduce protein bars and soft foods like scrambled eggs, cottage cheese and yogurt and after the 6th week will introduce meat, fish and cooked vegetables in small amounts. Over time you should be able to eat everything in small amounts. Side effects like nausea, vomiting, heartburn or abdominal pain are not common in the practice unless you are not following in the practice. This operation requires lifetime commitment to following in our practice and co mmunication with me. You will much less weight and experience side effects if you don?t communicate or not following in the practice. Complications are rare and in our practice is about 1/10 of the national average. However, you can develop bleeding that may require transfusion (hasn?t happened for year in the practice), you may from complications (we did not have any deaths in the practice) and infections. Infections are usually a result of breakdown in communication or not understanding or following directions correctly. They are difficult to treat, they can happen during the first 6 weeks, they may require to be in the hospital for weeks or even months, not being able to eat by mouth and you may have drains and surgeries to try and correct the issue. Other risks and complications include possible conversion to an open procedure, leaks, small bowel obstruction, blood clots, cardiac, or pulmonary complications, as group home complications such as ulcers, insufficient weight loss and vitamin deficiencies. 2. Nutritional counseling. Start with one CELEBRATE REBUILD protein (buy at hospital[facility] gift [facility]) shakes (TWO scoops in 8oz low fat unsweetened almond milk each) at 7am-9am, 1 protein bar (CELEBRATE protein bars, buy at [facility] [employer] [facility]) at 10am-12pm, another CELEBRATE REBUILD protein shakes (TWO scoops in 8oz low fat unsweetened almond milk each) at 1pm-3pm, another Celebrate protein bar at 4pm-6pm, dinner at 7pm (10 forks of protein and 10 forks of salad/vegetables) AND another HALF protein bar after dinner at 9pm-10pm. So you do 2 protein shakes, 2.5 protein bars and one meal per day. Meal to include lean meat (beef, fish, pork, turkey, chicken), or swazi yogurt, or egg whites, or beans with a salad with olive oil and fruits (berries, pears, apples, kiwi). Avoid salt, breads, potatoes, rice, pasta, desserts. 3. Each shake would be drunk slowly, like coffee in a period of 2 hours. 4. Cut each bar in 4 pieces and eat each piece in 30min ?to make each bar last 2 hours. 5. I emphasized the importance of measuring accurately the food portion and measure it when serving the food in plate 6. The meal portions include 10 full-size forks of meat and 10 full-size forks of salad. You always eat the meat portion but you can replace up to 5 forks for salad/vegetables with rice, potatoes or pasta, or a fruit ?if you like. The less you do it the better weight loss will be. 7. One full-size fork is what it can be scooped on the fork without falling aside and not what can be bit with the fork. Use regular forks like those you find in a typical restaurant. 8.? Please buy the body composition scale we discussed and send me weight measurements as soon as possible and then once a week. Always include your diet and exercise plan. 9. Start walking outside daily, tracking calories with a goal of 300 calories per day, daily. Goal is to burn 2000 calories per week on exercise, which means either 300 calories daily, or 400 calories 5 days per week, or 500 calories 4 days per week, or 650 calories 3 days per week. 10. The best choice would be to purchase a stationary bike, elliptical or treadmill at home that can track calories. If you get one, please start stationary bike at a resistance level of 4.0 Increase level by 1.0 every 3 min to a max level of 10.0. Stay at this level for 3 min and then return to level 4.0 and repeat same steps until 300 calories are burned. Goal is to burn 2000 calories per week on exercise 11.?It is important of avoiding and for at least 18 months postoperatively and has been discussed at the infosession. 12. Goal is to lose at least 1.5-2lbs per week 13. Goal to lose 10% of your weight before surgery, which is about 50lbs. Ultimate weight goal: 290lbs before surgery 14. Please follow the diet plan exactly without any change. If you don't like something about the plan or you feel hungry you need to communicate with me so I can help you revise the plan. You should not change the plan yourself 15. To be scheduled for EGD to assess the stomach's anatomy. The possibility of biopsies was discussed. Patient needs to avoid use of NSAIDs and aspirin for 1 week prior to EGD. You must be on liquids only the day before your endoscopy. Risks of perforation and bleeding was discussed with the patient. This will be an outpatient procedure with IV sedation. 16. Start Phentermine daily at 10am. We discussed the potential side-effects of the Phentermine such as irritability, dry mouth, difficulty sleeping, dizziness, numbness in feet and high blood pressure. I asked her to get a blood pressure monitor and measure the blood pressure daily in the morning and evening. She needs to send the blood pressure readings daily and to call the office for blood pressure over 140/80 and she understands that. Orders: Orders Insulin 09/16/25 - Morbid (severe) obesity due to excess calories, E03.9 - Hypothyroidism, unspecified, E78.5 - Hyperlipidemia, unspecified, G47.33 - Obstructive sleep apnea (adult) (pediatric) Complete Blood Count Auto Diff 09/16/25. - Morbid (severe) obesity due to excess calories, E03.9 - Hypothyroidism, unspecified, E78.5 - Hyperlipidemia, unspecified, G47.33 - Obstructive sleep apnea (adult) (pediatric) Lipid Panel 09/16/25 - Morbid (severe) obesity due to excess calories, E03.9 - Hypothyroidism, unspecified, E78.5 - Hyperlipidemia, unspecified, G47.33 - Obstructive sleep apnea (adult) (pediatric) IRON PROFILE 09/16/25. - Morbid (severe) obesity due to excess calories, E03.9 - Hypothyroidism, unspecified, E78.5 - Hyperlipidemia, unspecified, G47.33 - Obstructive sleep apnea (adult) (pediatric) Vitamin B12 and Folate 09/16/25. - Morbid (severe) obesity due to excess calories, E03.9 - Hypothyroidism, unspecified, E78.5 - Hyperlipidemia, unspecified, G47.33 - Obstructive sleep apnea (adult) (pediatric) TSH reflex Free T4 09/16/25. - Morbid (severe) obesity due to excess calories, E03.9 - Hypothyroidism, unspecified, E78.5 - Hyperlipidemia, unspecified, G47.33 - Obstructive sleep apnea (adult) (pediatric) Ferritin 09/16/25. - Morbid (severe) obesity due to excess calories, E03.9 - Hypothyroidism, unspecified, E78.5 - Hyperlipidemia, unspecified, G47.33 - Obstructive sleep apnea (adult) (pediatric) Vitamin D 25-OH Total 09/16/25. - Morbid (severe) obesity due to excess calories, E03.9 - Hypothyroidism, unspecified, E78.5 - Hyperlipidemia, unspecified, G47.33 - Obstructive sleep apnea (adult) (pediatric) US abdomen comp w elastography 09/16/25 E66. - Morbid (severe) obesity due to excess calories, E03.9 - Hypothyroidism, unspecified, E78.5 - Hyperlipidemia, unspecified, G47.33 - Obstructive sleep apnea (adult) (pediatric) ECG 12 lead EKG 09/16/25. - Morbid (severe) obesity due to excess calories, E03.9 - Hypothyroidism, unspecified, E78.5 - Hyperlipidemia, unspecified, G47.33 - Obstructive sleep apnea (adult) (pediatric) FL upper GI w air 09/16/25 E6. - Morbid (severe) obesity due to excess calories, E03.9 - Hypothyroidism, unspecified, E78.5 - Hyperlipidemia, unspecified, G47.33 - Obstructive sleep apnea (adult) (pediatric) Hemoglobin A1c 09/16/25 E66. - Morbid (severe) obesity due to excess calories, E03.9 - Hypothyroidism, unspecified, E78.5 - Hyperlipidemia, unspecified, G47.33 - Obstructive sleep apnea (adult) (pediatric) H Pylori Breath Test 09/16/25 E66. - Morbid (severe) obesity due to excess calories, E03.9 - Hypothyroidism, unspecified, E78.5 - Hyperlipidemia, unspecified, G47.33 - Obstructive sleep apnea (adult) (pediatric) Comprehensive Met. Panel 09/16/25 E66. - Morbid (severe) obesity due to excess calories, E03.9 - Hypothyroidism, unspecified, E78.5 - Hyperlipidemia, unspecified, G47.33 - Obstructive sleep apnea (adult) (pediatric) Zinc 09/16/25 E66. - Morbid (severe) obesity due to excess calories, E03.9 - Hypothyroidism, unspecified, E78.5 - Hyperlipidemia, unspecified, G47.33 - Obstructive sleep apnea (adult) (pediatric) C Reactive Protein 09/16/25 E66. - Morbid (severe) obesity due to excess calories, E03.9 - Hypothyroidism, unspecified, E78.5 - Hyperlipidemia, unspecified, G47.33 - Obstructive sleep apnea (adult) (pediatric) Vitamin B1 09/16/25 E66. - Morbid (severe) obesity due to excess calories, E03.9 - Hypothyroidism, unspecified, E78.5 - Hyperlipidemia, unspecified, G47.33 - Obstructive sleep apnea (adult) (pediatric) Vitamin A 09/16/25 E66.01 - Morbid (severe) obesity due to excess calories, E03.9 - Hypothyroidism, unspecified, E78.5 - Hyperlipidemia, unspecified, G47.33 - Obstructive sleep apnea (adult) (pediatric) XR chest 2V 09/16/25 E66.01 - Morbid (severe) obesity due to excess calories, E03.9 - Hypothyroidism, unspecified, E78.5 - Hyperlipidemia, unspecified, G47.33 - Obstructive sleep apnea (adult) (pediatric) Referrals Behavioral Health Referral E66.01 - Morbid (severe) obesity due to excess calories, E03.9 - Hypothyroidism, unspecified, E78.5 - Hyperlipidemia, unspecified, G47.33 - Obstructive sleep apnea (adult) (pediatric) Nutrition/Dietitian Referral E66.01 - Morbid (severe) obesity due to excess calories, E03.9 - Hypothyroidism, unspecified, E78.5 - Hyperlipidemia, unspecified, G47.33 - Obstructive sleep apnea (adult) (pediatric) Medications: New phentermine must administer 30 minutes before or 1-2 hours after breakfast 37.5 mg PO DAILY 30 caps 0RF E66.01 - Morbid (severe) obesity due to excess calories, Z68.44 - Body mass index [BMI] 60.0-69.9, adult
[2025-09-16 08:36] VITALS: BMI 63.2
== END 2025-09-16 08:59 | disposition home or self-care (01) ==
LOC: HO.HBS 08:09
PROVIDERS: PCP Nurse Practitioner Family; Visit Provider Surgery
DX: E66.01 Morbid (severe) obesity due to excess calories (principal)
CPT/HCPCS: 99204

== ENCOUNTER 2025-09-30 12:31 | Outpatient (REF) | payer OTHER, SELFPAY ==
--- NOTE | ~2025-09-30 | XR_ITS ---
EXAMINATION: XR CHEST CLINICAL INFORMATION: E66.01 - Morbid (severe) obesity due to excess calories COMPARISON: None available. TECHNIQUE: 2 views of the chest were obtained. FINDINGS: No significant abnormality is noted involving the heart, lungs, mediastinum, bony thorax or soft tissues. XR/XR chest 2V IMPRESSION: Unremarkable examination. Electronically signed by: Nicole Gomez MD 09/30/2025 01:33 PM EDT
--- NOTE | 2025-09-30 12:46 | ECG_ITS ---
Test Reason : E66.01 Blood Pressure : */* mmHG Vent. Rate : 94 BPM Atrial Rate : 94 BPM P-R Int : 160 ms QRS Dur : 88 ms QT Int : 352 ms P-R-T Axes : 36 41 0 degrees QTcB Int : 440 ms Normal sinus rhythm Normal ECG No previous ECGs available Referred By: Valerio Olivares Electronically Signed By: KING BARGER
[2025-09-30 12:59] LABS: MANUAL DIFF FLAG NO
[2025-09-30 13:28] LABS: Hematocrit 41.5 % (37.0-47.0); Hemoglobin 13.5 g/dl (12.0-16.0); Imm Gran Abs Auto 0.02 X10*3/uL (0.00-0.03); Imm Gran Pct Auto 0.2 % (0.0-0.4); Lymphocytes Absolute Auto 2.0 X10*3/uL (1.2-4.9); Mean Corpuscular HGB Conc 32.5 g/dl (31.0-35.0); Mean Corpuscular Hemoglobin 29.3 pg (27.0-33.0); Mean Corpuscular Volume 90.0 fL (80.0-98.0); NRBC Abs Auto 0.000 X10*3/uL (0.0-0.012); NRBC Pct Auto 0.0 /100WBC (0.0-0.2); Platelet Count 202 X10*3/uL (160-400); Red Blood Count 4.61 X10*6/uL (4.20-5.50); White Blood Count 8.8 X10*3/uL (4.8-10.8)
--- OUTSIDE RECORDS SUMMARY | 2025-09-30 13:46 | XMS_ITS | Encounter Summary ---
Author Organization [facility] Address [address] [place] [address] Phone Care Team Providers Care Steam Finisher Name Role Phone Tej De Luna MD Primary Care Provider [phone] Encounter Details Date Type Department Care Team (Late st Contact Info) Description 07/23/2017 Documentation [facility] [place] [address] [place] [address] Family Medicine, Physician [address] [place] [address] Social History Tobacco Use Types Packs/Day Years [...] on filedocumented in this encounter Care Teams Steam Finisher Relationship Specialty Start Date End Date Tej De Luna MD [address] [place] [address] [place] [address] PCP - General Pediatrics 01/25/21 03/25/24 documented as of this encounter
--- OUTSIDE RECORDS SUMMARY | 2025-09-30 13:46 | XMS_ITS | Encounter Summary ---
Author Organization [facility] Address [address] [place], [place] [address] Phone Care Team Providers Care Mortgage Closing Clerk Name Role Phone Tej De Luna MD Primary Care Provider [phone] Encounter Details Date Type Department Care Team (Late st Contact Info) Description 05/12/2015 Documentation [facility] [place] [address] [place] [address] Family Medicine, Physician [address] [place], [place] [address] Social History Tobacco Use Types Packs/Day Years [...] on filedocumented in this encounter Care Teams Mortgage Closing Clerk Relationship Specialty Start Date End Date Tej De Luna MD [address] [place] [address] [place] [address] PCP - General Pediatrics 01/25/21 03/25/24 documented as of this encounter
--- OUTSIDE RECORDS SUMMARY | 2025-09-30 13:46 | XMS_ITS | Encounter Summary ---
Author Organization [facility] Address [address] [place] [address] Phone Care Team Providers Care Package Winder Name Role Phone Tej De Luna MD Primary Care Provider [phone] Encounter Details Date Type Department Care Team (Late st Contact Info) Description 01/27/2020 Patient Outreach [facility] [address] [address] Andrew Zimmerman MD Social History Tobacco Use Types Packs/Day Years [...] on filedocumented in this encounter Care Teams Package Winder Relationship Specialty Start Date End Date Tej De Luna MD [address] [place] [address] [place] Diaz [address] PCP - General Pediatrics 01/25/21 03/25/24 documented as of this encounter
--- OUTSIDE RECORDS SUMMARY | 2025-09-30 13:46 | XMS_ITS | Encounter Summary ---
Author Organization [facility] Address [address] [place], [place] [address] Phone Care Team Providers Care Analytics Leader Name Role Phone Tej De Luna MD Primary Care Provider [phone] Encounter Details Date Type Department Care Team (Late st Contact Info) Description 05/12/2015 Documentation [facility] [place] Family Medicine [address] [place] [address] Family Medicine, Physician [address] [place], [place] [address] Social History Tobacco Use Types Packs/Day Years [...] on filedocumented in this encounter Care Teams Analytics Leader Relationship Specialty Start Date End Date Tej De Luna MD [address] [place] [address] [place] [address] PCP - General Pediatrics 01/25/21 03/25/24 documented as of this encounter
--- OUTSIDE RECORDS SUMMARY | 2025-09-30 13:46 | XMS_ITS | Encounter Summary ---
Author Organization [facility] Address [address] [place] [address] Phone Care Team Providers Care Kinesiologist Name Role Phone Tej De Luna MD Primary Care Provider [phone] Encounter Details Date Type Department Care Team (Late st Contact Info) Description 07/23/2017 Documentation [facility] [place] [address] [place] [address] Family Medicine, Physician [address] [place] [address] Social History Tobacco Use Types Packs/Day Years [...] on filedocumented in this encounter Care Teams Kinesiologist Relationship Specialty Start Date End Date Tej De Luna MD [address] [place] [address] [place] [address] PCP - General Pediatrics 01/25/21 03/25/24 documented as of this encounter
--- OUTSIDE RECORDS SUMMARY | 2025-09-30 13:46 | XMS_ITS | Encounter Summary ---
Author Organization [facility] Address [address] [place], [place] [address] Phone Care Team Providers Care Nursing Faculty Name Role Phone Tej De Luna MD Primary Care Provider [phone] Encounter Details Date Type Department Care Team (Late st Contact Info) Description 11/07/2014 Documentation [facility] Family Medicine [address] [place] [address] Family Medicine, Physician [address] [place], [place] [address] Social History Tobacco Use Types Packs/Day Years [...] on filedocumented in this encounter Care Teams Nursing Faculty Relationship Specialty Start Date End Date Tej De Luna MD [address] [place] [address] [place] [address] PCP - General Pediatrics 01/25/21 03/25/24 documented as of this encounter
--- OUTSIDE RECORDS SUMMARY | 2025-09-30 13:46 | XMS_ITS | Encounter Summary ---
Author Organization [facility] Address [address] [place], [place] [address] Phone Care Team Providers Care Optometry Teacher Name Role Phone Tej De Luna MD Primary Care Provider [phone] Encounter Details Date Type Department Care Team (Late st Contact Info) Description 01/01/2013 Documentation [facility] [place] Family Medicine [address] [place] [address] Family Medicine, Physician [address] [place], [place] [address] Social History Tobacco Use Types Packs/Day Years [...] on filedocumented in this encounter Care Teams Optometry Teacher Relationship Specialty Start Date End Date Tej De Luna MD [address] [place] [address] [place] [address] PCP - General Pediatrics 01/25/21 03/25/24 documented as of this encounter
--- OUTSIDE RECORDS SUMMARY | 2025-09-30 13:46 | XMS_ITS | Encounter Summary ---
Author Organization [facility] Address [address] [place], [place] [address] Phone Care Team Providers Care Fruit Peeler Name Role Phone Tej De Luna MD Primary Care Provider [phone] Encounter Details Date Type Department Care Team (Late st Contact Info) Description 10/06/2014 [place]ation [facility] [place] [address] [place] [address] Family Medicine, Physician [address] [place], [place] [address] Social History Tobacco Use Types Packs/Day Years [...] on filedocumented in this encounter Care Teams Fruit Peeler Relationship Specialty Start Date End Date Tej De Luna MD [address] [place] [address] [place] [address] PCP - General Pediatrics 01/25/21 03/25/24 documented as of this encounter
--- OUTSIDE RECORDS SUMMARY | 2025-09-30 13:46 | XMS_ITS | Encounter Summary ---
Author Organization [facility] Address [address] [place], [place] [id number] Phone Care Team Providers Care Facilities Supervisor Name Role Phone Tej De Luna MD Primary Care Provider Encounter Details Date Type Department Care Team (Late st Contact Info) Description 02/14/2014 Documentation [facility] [place] Family Medicine [address] [place] [address] Family Medicine, Physician [address] [place], [place] [address] Social History Tobacco Use Types Packs/Day Years [...] on filedocumented in this encounter Care Teams Facilities Supervisor Relationship Specialty Start Date End Date Tej De Luna MD [address] [place] [address] [place] [address] PCP - General Pediatrics 01/25/21 03/25/24 documented as of this encounter
--- OUTSIDE RECORDS SUMMARY | 2025-09-30 13:46 | XMS_ITS | Encounter Summary ---
Author Organization [facility] Address [address] [place], [place] [address] Phone Care Team Providers Care Marriage Therapist Name Role Phone Tej De Luna MD Primary Care Provider [phone] Encounter Details Date Type Department Care Team (Late st Contact Info) Description 08/14/2011 Documentation [facility] [place] Family Medicine [address] [place] [address] Family Medicine, Physician [address] [place], [place] [address] Social History Tobacco Use Types Packs/Day Years [...] on filedocumented in this encounter Care Teams Marriage Therapist Relationship Specialty Start Date End Date Tej De Luna MD [address] [place] [address] [place] [address] PCP - General Pediatrics 01/25/21 03/25/24 documented as of this encounter
--- OUTSIDE RECORDS SUMMARY | 2025-09-30 13:46 | XMS_ITS | Encounter Summary ---
Author Organization [facility] Address [address] [place], [place] [phone] Phone Care Team Providers Care Crown Assembly Machine Set Up Mechanic Name Role Phone Tej De Luna MD Primary Care Provider [phone] Encounter Details Date Type Department Care Team (Late st Contact Info) Description 07/17/2017 Conversion Encounter [facility] [place] [address] [place] [address] Social History Tobacco Use Types Packs/Day Years [...] on filedocumented in this encounter Care Teams Crown Assembly Machine Set Up Mechanic Relationship Specialty Start Date End Date Tej De Luna MD 150 [place] [address] PCP - General Pediatrics 01/25/21 03/25/24 documented as of this encounter
--- OUTSIDE RECORDS SUMMARY | 2025-09-30 13:46 | XMS_ITS | Encounter Summary ---
Author Organization [facility] Address [address] [place], [place] [address] Phone Care Team Providers Care Tool Machine Setup Operator Name Role Phone Tej De Luna MD Primary Care Provider [phone] Encounter Details Date Type Department Care Team (Late st Contact Info) Description 01/01/2013 Documentation [facility] [place] [address] [place] [address] Family Medicine, Physician [address] [place], [place] [address] Social History Tobacco Use Types Packs/Day Years [...] on filedocumented in this encounter Care Teams Tool Machine Setup Operator Relationship Specialty Start Date End Date Tej De Luna MD [address] [place] [address] [place] [address] PCP - General Pediatrics 01/25/21 03/25/24 documented as of this encounter
--- OUTSIDE RECORDS SUMMARY | 2025-09-30 13:46 | XMS_ITS | Encounter Summary ---
Author Organization [facility] Address [address] [place], [place] [address] Phone Care Team Providers Care Ese Teacher Name Role Phone Tej De Luna MD Primary Care Provider [phone] Encounter Details Date Type Department Care Team (Late st Contact Info) Description 02/04/2013 Documentation [facility] [place] [address] [place] [address] Family Medicine, Physician [address] [place], [place] [address] Social History Tobacco Use Types Packs/Day Years [...] on filedocumented in this encounter Care Teams Ese Teacher Relationship Specialty Start Date End Date Tej De Luna MD [address] [place] [address] [place] [address] PCP - General Pediatrics 01/25/21 03/25/24 documented as of this encounter
--- OUTSIDE RECORDS SUMMARY | 2025-09-30 13:46 | XMS_ITS | Encounter Summary ---
Author Organization [facility] Address [address] [place] [address] Phone Care Team Providers Care Chemistry Account Manager Name Role Phone Tej De Luna MD Primary Care Provider [phone] Reason for Visit * Reason Comments Med Refill Encounter Details Date Type Department Care Team (Late st Contact Info) Description 02/12/2018 Refill [facility] [place] [address] [place] [address] Leeann Martin MD [address] [place] [address] Mild intermittent asthma without complication (Primary Dx) [...] Primary documented in this encounter Care Teams Chemistry Account Manager Relationship Specialty Start Date End Date Tej De Luna MD 150 [facility] [place] [address] PCP - General Pediatrics 01/25/21 03/25/24 documented as of this encounter
--- OUTSIDE RECORDS SUMMARY | 2025-09-30 13:47 | XMS_ITS | Encounter Summary ---
Author Organization [facility] Address [address] [place], [place] [address] Phone Care Team Providers Care Flat Screen Worker Name Role Phone Tej De Luna MD Primary Care Provider [phone] Encounter Details Date Type Department Care Team (Late st Contact Info) Description 12/22/[address] [facility] [place] Family Medicine [address] [place] [address] Family Medicine, Physician [address] [place], [place] [address] Social History Tobacco Use Types Packs/Day Years [...] on filedocumented in this encounter Care Teams Flat Screen Worker Relationship Specialty Start Date End Date Tej De Luna MD [address] [place] [address] [place] [address] PCP - General Pediatrics 01/25/21 03/25/24 documented as of this encounter
--- OUTSIDE RECORDS SUMMARY | 2025-09-30 13:47 | XMS_ITS | Encounter Summary ---
Author Organization [facility] Address [address] [place], [place] [address] Phone Care Team Providers Care Eyeglass Assembler Name Role Phone Tej De Luna MD Primary Care Provider [phone] Encounter Details Date Type Department Care Team (Late st Contact Info) Description 10/10/2014 Documentation [facility] [place] [address] [place] [address] Family Medicine, Physician [address] [place], [place] [address] Social History Tobacco Use Types Packs/Day Years [...] on filedocumented in this encounter Care Teams Eyeglass Assembler Relationship Specialty Start Date End Date Tej De Luna MD [address] [place] [address] [place] [address] PCP - General Pediatrics 01/25/21 03/25/24 documented as of this encounter
--- OUTSIDE RECORDS SUMMARY | 2025-09-30 13:47 | XMS_ITS | Encounter Summary ---
Author Organization [facility] Address [address] [place] [address] Phone Care Team Providers Care Quality Assurance Name Role Phone Tej De Luna MD Primary Care Provider [phone] Reason for Visit * Reason Onset Date Comments Med Refill 08/17/2023 Encounter Details Date Type Department Care Team (Late st Contact Info) Description 08/17/2023 Refill [facility] [place] [address] [place] [address] Tej De Luna MD 150 [place] [address] Mild intermittent asthma without complication Social History [...] complication documented in this encounter Care Teams Quality Assurance Relationship Specialty Start Date End Date Tej De Luna MD [address] [place] [address] [place] Diaz [address] PCP - General Pediatrics 01/25/21 03/25/24 documented as of this encounter
--- OUTSIDE RECORDS SUMMARY | 2025-09-30 13:47 | XMS_ITS | Encounter Summary ---
Author Organization [facility] Address [address] [place], [place] [phone] Phone Care Team Providers Care Music Manager Name Role Phone Tej De Luna MD Primary Care Provider [phone] Encounter Details Date Type Department Care Team (Late st Contact Info) Description 11/03/2013 Documentation [facility] [place] Family Medicine [address] [place] [address] Family Medicine, Physician [address] [place], [place] [address] Social History Tobacco Use Types Packs/Day Years [...] on filedocumented in this encounter Care Teams Music Manager Relationship Specialty Start Date End Date Tej De Luna MD [address] [place] [address] [place] [address] PCP - General Pediatrics 01/25/21 03/25/24 documented as of this encounter
--- OUTSIDE RECORDS SUMMARY | 2025-09-30 13:47 | XMS_ITS | Encounter Summary ---
Author Organization [facility] Address [address] [place], [place] [address] Phone Care Team Providers Care Cath Lab Name Role Phone Tej De Luna MD Primary Care Provider [phone] Encounter Details Date Type Department Care Team (Late st Contact Info) Description 12/17/2013 Documentation [facility] [place] [address] [place] [address] Family Medicine, Physician [address] [place], [place] [address] Social History Tobacco Use Types Packs/Day Years [...] on filedocumented in this encounter Care Teams Cath Lab Relationship Specialty Start Date End Date Tej De Luna MD [address] [place] [address] [place] [address] PCP - General Pediatrics 01/25/21 03/25/24 documented as of this encounter
--- OUTSIDE RECORDS SUMMARY | 2025-09-30 13:47 | XMS_ITS | Encounter Summary ---
Author Organization [facility] Address [address] [place] [address] Phone Care Team Providers Care Carpenter Railcar Name Role Phone Tej De Luna MD Primary Care Provider [phone] Reason for Visit * Reason Comments Med Refill Encounter Details Date Type Department Care Team (Late st Contact Info) Description 07/20/2020 Refill [facility] [place] [address] [place] [address] Leeann Martin MD 150 [place] [address] Chlamydia Social History Tobacco Use Types Packs/Day [...] site documented in this encounter Care Teams Carpenter Railcar Relationship Specialty Start Date End Date Tej De Luna MD 150 [facility] [place] [address] PCP - General Pediatrics 01/25/21 03/25/24 documented as of this encounter
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
[2025-09-30 14:21] LABS: Alanine Aminotransferase 36 U/L (0-31); Albumin Level 4.1 g/dL (3.5-5.0); Alkaline Phosphatase 85 U/L (39-117); Anion Gap 11 (12-20); Aspartate Amino Transferase 23 U/L (5-31); Blood Urea Nitrogen 10 mg/dL (9-16); Calcium 9.2 mg/dL (8.4-10.2); Carbon Dioxide 27 mmol/L (22-29); Chloride 105 mmol/L (96-108); Cholesterol 160 mg/dL (<200); Estimated Glomerular Filt Rate > 60; HDL Cholesterol 29 mg/dL (>40); Iron 53 mcg/dL (30-160); Percent Iron Saturation 19 % (15-50); Potassium 3.7 mmol/L (3.3-5.1); Sodium 139 mmol/L (135-145); Total Iron Binding Capacity 275 mcg/dL (228-428); Total Protein 7.4 g/dL (6.5-8.0); Triglycerides 239 mg/dL (<150); Unsaturated Iron Binding 222 ug/dL
[2025-09-30 14:37] LABS: Ferritin 142 ng/mL (10-122)
[2025-09-30 14:48] LABS: Folate 7.5 ng/mL (> or = 4.0); Vitamin B12 391 pg/mL (200-900)
== END 2025-09-30 12:32 | disposition home or self-care (01) ==
LOC: HO.LAB 12:31
PROVIDERS: PCP Nurse Practitioner Family; Visit Provider Surgery
DX: E66.01 Morbid (severe) obesity due to excess calories (principal); E03.9 Hypothyroidism, unspecified; E78.5 Hyperlipidemia, unspecified; G47.33 Obstructive sleep apnea (adult) (pediatric)
CPT/HCPCS: 36415; 71046; 80053; 80061; 82306; 82607; 82728; 82746; 83036; 83525; 83540; 84425; 84443; 84590; 84630; 85025; 86140; 93005

== ENCOUNTER → 2025-09-30 12:46 | Outpatient (BNV) | payer OTHER, SELFPAY | PROVIDERS: PCP Nurse Practitioner Family; Visit Provider Internal Medicine | DX: E66.01 Morbid (severe) obesity due to excess calories (principal); Z68.44 Body mass index [BMI] 60.0-69.9, adult | CPT/HCPCS: 93010 ==

== ENCOUNTER → 2025-09-30 13:13 | Outpatient (BNV) | payer OTHER, SELFPAY | PROVIDERS: PCP Nurse Practitioner Family; Visit Provider Radiology Diagnostic Radiology | DX: E66.01 Morbid (severe) obesity due to excess calories (principal); Z68.44 Body mass index [BMI] 60.0-69.9, adult | CPT/HCPCS: 71046 ==

== ENCOUNTER 2025-11-08 08:31 | Day surgery (SDC) | payer OTHER, SELFPAY ==
[2025-10-14 10:26] VITALS: BMI 63.2
[2025-11-08 08:52] VITALS: BMI 59.3
[2025-11-08 08:58] LABS: UPreg QC Valid YES
[2025-11-08 09:10] VITALS: BP 111/62; PULSE 88; RESP 15; TEMP 36.6; O2SAT 96
[2025-11-08] MEDS: Lactated Ringers 1,000 ML 80 ML IVCONT (09:17)
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
--- NOTE | 2025-11-08 09:58 | MHC.SHP ---
Pre-Procedural Eval Section A - 24 Hr Update-Section A only Date of Service: 11/08/25 The patient is an INPATIENT: No The patient has been examined within 24 hours of the surgical procedure. The History & Physical has been completed within 30 days and I have reviewed it.: Yes Section B - Complete if H&P > 30 days Chief Complaint: Morbid (severe) obesity due to excess calories Relevant Family History (Specify if Yes): No Relevant Social History: None Present Medications: None Medical History: No relevant PMH History of Previous Operations: No relevant previous surgery Allergies: Allergies Allergy/AdvReac Type Severity Reaction Status Date / Time amoxicillin Allergy Severe Rash Verified 11/08/25 08:52 Review of Systems Sugical H&P ROS: Negative: Constitution, Cardiovascular, Respiratory, Neurological, Psychiatric, Hem-Onc, Allergic/Immunologic, Gastrointestinal, Genitourinary, Musculoskeletal, Integumentary, Endocrine and Eyes/Ears/Nose/Throat Exam Surgical H&P Exam: Normal: HEENT, Normal: Heart, Normal: Lungs, Normal: Extremities, Normal: Abdomen, Normal: Skin and Normal: Neurological Plan Diagnosis/Plan: Unchanged (EGD to assess the stomach's anatomy. Risks of bleeding and perforation were discussed with the patient and she is in agreement with the plan.) I have reviewed the history and physical and performed a pertinent physical examination on my patient. No changes have occurred unless specified. Time Spent With Patient Time: Total time managing care of this patient today ____ minutes.
--- NOTE | 2025-11-08 10:04 | PM.OP ---
Brief Operative Note Date of Service: 11/08/25 Pre-op diagnosis: Morbid obesity Post-op diagnosis: same Procedure: PROCEDURE DATE: 11/08/2025 PREOPERATIVE DIAGNOSIS: Morbid obesity POSTOPERATIVE DIAGNOSIS: ?Same as above. Normal endoscopy PROCEDURE: Logpdize-ggcyrp-pcfemduginnd with biopsies Surgeon: Sanjana Olivares M.D.. Ph.D. Director Process Improvement: None ? Anesthesia: IV sedation Estimated blood loss: ?Minimal FINDINGS AND PROCEDURE: ? OPERATIVE INDICATIONS: ?The patient is a 20 year old female known to me who is interested in bariatric surgery. Based on this information I recommended an upper endoscopy to evaluate the patient's symptoms. Risks and complications of the surgery were discussed with the patient in advance particularly the possibility of perforation or bleeding that may require surgical intervention. The patient understood the risks and was in agreement with the plan. ? PROCEDURE: After informed consent was obtained by the patient, the patient was ?transferred to the Operating Room and was placed in the supine position.? After successful induction of IV sedation, a mouth block was inserted and the patient was placed in the left lateral decubitus position. An upper endoscopy was performed next, the oropharynx and esophagus appeared within the normal limits. There was no hiatal hernia. The z-line was smooth. Two biopsies were obtained from the distal esophagus 2-3 cm proximal to the GE junction and two additional biopsies from the GE junction. The stomach was entered and it appeared to be of normal size. There was no gastritis. There was no stricture or ulcer. A biopsy was obtained from the gastric fundus and the antrum. No significant bleeding was noted from any of the biopsy sites. Retroflexion of the scope confirmed the presence of a normal GE junction. The scope was then advanced into the duodenum at the 4th portion, which appeared to be normal as well. At that point the duodenum ?and the stomach were decompressed and the scope was withdrawn from the patient's mouth. The patient extubated and was transferred in stable condition to the Recovery Room for further care. I was present and performed all steps of the procedure. There were no residents to assist with this case. Harry Olivares M.D., Ph.D. Surgeon: Valerio Olivares MD Anesthesia: MAC Was an Director Process Improvement used for this Procedure?: No Estimated blood loss (mL): 0 IV fluids (mL): 400 Urine output (mL): 0 (No Condon to record output) Pathology: other (1) antrum x1, 2) fundus x1, 3) GE junction x2, 4) distal esophagus x2) Condition: stable Disposition: PACU
[2025-11-08 10:30] VITALS: BP 126/80; PULSE 78; RESP 16; TEMP 36.1; O2SAT 99
[2025-11-08 10:35] VITALS: BP 130/84; PULSE 84; RESP 20; O2SAT 95
[2025-11-08 10:45] VITALS: BP 131/82; PULSE 78; RESP 16; O2SAT 95
[2025-11-08 10:55] VITALS: BP 115/69; PULSE 90; RESP 12; TEMP 36.6; O2SAT 96
== END 2025-11-08 11:12 | disposition home or self-care (01) ==
PROVIDERS: Nurse Practitioner; PCP Nurse Practitioner Family; Visit Provider Surgery
PROC: 0DJ08ZZ Inspection of Upper Intestinal Tract, Via Natural or Artificial Opening Endoscopic (ICD-10-PCS; CPT 43235; principal; 2025-11-08 10:00)
DX: E66.01 Morbid (severe) obesity due to excess calories (principal); Z68.44 Body mass index [BMI] 60.0-69.9, adult; E78.5 Hyperlipidemia, unspecified; G47.33 Obstructive sleep apnea (adult) (pediatric); E03.9 Hypothyroidism, unspecified; J45.909 Unspecified asthma, uncomplicated; L30.9 Dermatitis, unspecified; Z99.89 Dependence on other enabling machines and devices; Z79.899 Other long term (current) drug therapy; Z88.1 Allergy status to other antibiotic agents
CPT/HCPCS: 43239; 81025; 88305; 88313; 88342; J2704

== ENCOUNTER → 2025-11-08 08:31 | Outpatient (BNV) | payer OTHER, SELFPAY | PROVIDERS: PCP Nurse Practitioner Family; Visit Provider Surgery | DX: E66.01 Morbid (severe) obesity due to excess calories (principal); Z68.44 Body mass index [BMI] 60.0-69.9, adult | CPT/HCPCS: 43239 ==

== ENCOUNTER 2025-11-22 08:00 | Outpatient (REF) | payer OTHER, SELFPAY ==
--- NOTE | ~2025-11-22 | US_ITS ---
EXAMINATION: US ABDOMEN COMPLETE WITH LIVER ELASTOGRAPHY HISTORY: E66.01 - Morbid (severe) obesity due to excess calories TECHNIQUE: Real-time grayscale ultrasound imaging of the abdomen was performed and images were reviewed. COMPARISON: There are no prior studies available for comparison. FINDINGS: Liver: The right lobe of the liver measures 18.5 cm in size. The left lobe of the liver measures 16.0 cm in size. The liver demonstrates increased echotexture, consistent with steatosis. No focal mass or intrahepatic biliary ductal dilatation is identified. There is normal hepatopedal flow in the portal vein. Ultrasound elastography of the liver was performed with 10 separate measurements of the liver parenchyma with the patient in the supine position. Measurements were obtained approximately 2 cm below Yi's capsule and perpendicular to the capsule. The median shear wave velocity is 0.93 m/s. The interquartile range/median (IQR/median) is 0.22. Gallbladder and biliary tree: The gallbladder is unremarkable, without evidence of calculi, wall thickening, or pericholecystic fluid. There is no sonographic Martinez sign. The common bile duct is normal in caliber measuring 4 mm in diameter. Kidneys: The right kidney measures 11.8 cm in length. The left kidney measures 11.6 cm in length. The kidneys are unremarkable, without evidence of masses, hydronephrosis, or calculi. Pancreas: The pancreatic head, neck, and body are unremarkable. The pancreatic tail is obscured by bowel gas. Spleen: 10.8 measuring cm in length. There is no free fluid in the abdomen. US/US abdomen comp w elastography IMPRESSION: Hepatomegaly and hepatic steatosis. The median shear wave velocity in the liver is 0.93 m/s, corresponding to a median liver stiffness of 2.62 kPa. The IQR/median value is 0.22. This is indicative of a poor quality data set, and the estimated liver stiffness may be unreliable. Findings are indicative of a normal elastography value with a low likelihood of severe fibrosis or cirrhosis. REFERENCE: Society of Radiologists in Ultrasound Liver Stiffness Thresholds (2020): LIVER STIFFNESS THRESHOLDS: *Shear wave velocity less than 1.3 m/s (Liver Stiffness equal or less than 5 kPa): High probability of being normal. *Shear wave velocity less than 1.7 m/s (Liver Stiffness less than 9 kPa): In the absence of other known clinical signs, rules out compensated advanced chronic liver disease. *Shear wave velocity between 1.7-2.1 m/s (Liver Stiffness 9-13 kPa): Suggestive of compensated advanced chronic liver disease but need further test for confirmation. *Shear wave velocity between 2.1-2.4 m/s (Liver Stiffness 13-17 kPa): Rules in compensated advanced chronic liver disease. *Shear wave velocity greater than 2.4 m/s (Liver Stiffness over 17 kPa): Suggestive of clinically significant portal hypertension. QUALITY OF DATA SET: *IQR/Median value equal or less than 0.15 implies a quality data set. *IQR/Median value over 0.15 implies a poor quality data set. SIGNIFICANT CHANGE FROM PRIOR EXAM: Significant change if liver stiffness measurement is 10% or greater from prior exam. OTHER CONSIDERATIONS: The stage of liver fibrosis may be overestimated in the setting of acute hepatitis, liver inflammation, elevated liver function tests, hepatic vascular congestion, obstructive cholestasis, non-fasting state, and infiltrative diseases such as amyloidosis and lymphoma. In some patients with NAFLD, the liver stiffness thresholds for compensated advanced chronic liver disease may be lower. In causes other than viral hepatitis and NAFLD, liver stiffness thresholds are not well established. Electronically signed by: Narendra Siddiqui MD 11/22/2025 08:42 AM [facility] [place]
--- OUTSIDE RECORDS SUMMARY | 2025-11-22 08:03 | XMS_ITS | Clinical Summary ---
Author Organization [facility] Address [address] [place] [address] Phone Care Team Providers Care Tmh Teacher Name Role Phone Unavailable Primary Care Provider [...] 08/21/2021 Overview (08/21/2021): Diagnosed 08/2021. Followed by [facility] End[facility]ology. Assessment & Plan (06/07/2022 10:05 AM EDT): See above- she will call Wally CAROLYN for FU Mixed hyperlipidemia 01/26/2019 Overview (01/26/2019): TG 155 (high 07/2018), HDL 35 (low 07/2018) Assessment & Plan (01/26/2019 1:35 PM EST): Saw Endo & referred to oil heat technician Healthy diet info given Exercise recommended They will follow in future DM screen was negative but Pt at high risk Obesity due to excess calories 01/26/2018 Overview (01/05/2020): Used to [place] [facility]. had issues with no [...] at [facility] Wally referred her to oil heat technician Assessment & Plan (01/26/2018 2:28 PM EST): Awesome weight loss since moving in with Great Aunt Mild intermittent asthma without complication Overview (01/26/2018): uses albuterol prn. Off pulmicort since 2012 Assessment & Plan (01/27/2020 8:11 AM EST): No issues in years Assessment & Plan (01/26/2018 2:51 PM EST): No issues Psychosocial stressors 01/26/2018 Overview (06/07/2022): Mom in long term 2016. Pt living on her own w/ 18mo old as of Decided to keep her DCF medical social consultant for support Assessment & Plan (06/07/2022 10:06 AM EDT): She decided to keep her DCF medical social consultant for supports Also has help from her GM Assessment & Plan (08/10/2020 2:36 PM EDT): 08/10/2020 Kenzie Peterson [facility] [phone] calling for update - requested date of last PE, concerns listed, medications teen is taking, and current with vaccinations- information given Kenzie gave me a new contact number: for teen [phone] Assessment & Plan (05/10/2020 3:18 PM EDT): Will contact [facility] to find out what are legal responsibility of notification is. Patient is asking to not notify though I think it would be best to have DCF help Patient to get services & housing especially since she does not want her Galvanizer Zinc to know Congenital hypothyroidism without goiter 010 [...] (05/10/2020 3:22 PM EDT): Spoke with [employer] AR[employer] who will help with transportation, housing, DCF, visit & endocrine visit Needs EVELYN urine STI screen & UHCG done in office this week Encounters Date Type Department Care Team Description 09/19/2025 Telephone [facility] - [address] [address] Cinthia Elliott MD Medical Records [...] Mother: Obesity Other Family history of Sudden /[place] under 55, Family history of Diabetes mellitus, [...] Completed 07/15/2019, 015 Procedures * Due to [place] law, this organization might not be sharing sensitive test results. Procedure Name Priority Date/Time Associated Diagnosis Comments CHLAMYDIA AND GONORRHEA, AMPLIFIED Routine 09/13/2022 4:20 PM EDT Special screening examination for chlamydial disease from Last 3 Months or Most Recently Relevant to Health Maintenance Results * Due to [place] law, this organization might not be sharing sensitive test results. * Chlamydia and Gonorrhoea, Amplified (09/13/2022 4:20 PM EDT) Chlamydia Trachomatis, DNA Probe NEGATIVE (NEG) [facility] Comment: No Chlamydia Trachomatis RNA detected in this patient's sample (REFERENCE RANGE/NORMAL VALUE: NOT DETECTED) Note: This test uses automotive finance manager- mediated amplification method to detect rRNA from C. Trachomatis URINE GC AMP PROBE NEGATIVE (NEG) [facility] Comment: No Neisseria Gonorrhoeae RNA detected in this patient's sample (REFERENCE RANGE/NORMAL VALUE: NOT DETECTED) NOTE: This test uses automotive finance manager-mediated amplification method to detect rRNA from N.Gonorrhoeae. [...] without risk of sexual abuse. Consult the [facility] if needed. Contact phone number . Therapeutic failure or success cannot be determined with the Aptima Combo2 assay since nucleic acid may persist following appropriate antimicrobial therapy. The Centers for Disease Control and Prevention (CDC) recommends confirmatory retesting using culture or a different nucleic acid amplification test when positive results occur, if indicated. Testing performed or reported by [facility], a Service of [facility], [address] [place] [address] Fernando Chaudhari MD, Customer Experience Specialist [facility]# [id number] Urine (Urine) 09/13/2022 4:2 0 PM EDT 09/14/2022 1:56 PM EDT us Tej De Luna MD LAB MICROBIOLOGY - GENERAL ORDER SAYDA Final Result [facility] from Last 3 Months or Most Recently Relevant to Health Maintenance
--- OUTSIDE RECORDS SUMMARY | 2025-11-22 08:03 | XMS_ITS | Encounter Summary ---
Author Organization [facility] Address [address] [place] [address] Phone Care Team Providers Care Multimedia Services Coordinator Name Role Phone Tej De Luna MD Primary Care Provider [phone] Encounter Details Date Type Department Care Team (Late st Contact Info) Description 07/23/2017 Documentation [facility] [place] [place] Family Medicine [address] [place] [address] Family Medicine, Physician [address] [place] [address] Social History Tobacco Use Types Packs/Day Years [...] on filedocumented in this encounter Care Teams Multimedia Services Coordinator Relationship Specialty Start Date End Date Tej De Luna MD [address] [place] [address] [place] [address] PCP - General Pediatrics 01/25/21 03/25/24 documented as of this encounter
--- OUTSIDE RECORDS SUMMARY | 2025-11-22 08:03 | XMS_ITS | Encounter Summary ---
Author Organization [facility] Address [address] [place], [place] [address] Phone Care Team Providers Care Manager Call Name Role Phone Tej De Luna MD Primary Care Provider [phone] Encounter Details Date Type Department Care Team (Late st Contact Info) Description 01/01/2013 Documentation [facility] [place] Family Medicine [address] [place] [address] Family Medicine, Physician [address] [place], [place] [address] Social History Tobacco Use Types Packs/Day Years [...] on filedocumented in this encounter Care Teams Manager Call Relationship Specialty Start Date End Date Tej De Luna MD [address] [place] [address] [place] [address] PCP - General Pediatrics 01/25/21 03/25/24 documented as of this encounter
--- OUTSIDE RECORDS SUMMARY | 2025-11-22 08:03 | XMS_ITS | Encounter Summary ---
Author Organization [facility] Address [address] [place] [address] Phone Care Team Providers Care Director Of Patient Safety Name Role Phone Tej De Luna MD Primary Care Provider [phone] Reason for Visit * Reason Comments Med Refill Encounter Details Date Type Department Care Team (Late st Contact Info) Description 07/20/2020 Refill [facility] [place] [address] [place] [address] Leeann Martin MD 150 [place] [address] Chlamydia Social History Tobacco Use Types Packs/Day [...] site documented in this encounter Care Teams Director Of Patient Safety Relationship Specialty Start Date End Date Tej De Luna MD 150 [facility] [place] [address] PCP - General Pediatrics 01/25/21 03/25/24 documented as of this encounter
--- OUTSIDE RECORDS SUMMARY | 2025-11-22 08:03 | XMS_ITS | Encounter Summary ---
Author Organization [facility] Address [address] [place], [place] [phone] Phone Care Team Providers Care Splicing Technician Name Role Phone Tej De Luna MD Primary Care Provider [phone] Encounter Details Date Type Department Care Team (Late st Contact Info) Description 12/17/2013 Documentation [facility] [place] [address] [place] [address] Family Medicine, Physician [address] [place], [place] [address] Social History Tobacco Use Types Packs/Day Years [...] on filedocumented in this encounter Care Teams Splicing Technician Relationship Specialty Start Date End Date Tej De Luna MD [address] [place] [address] [place] [address] PCP - General Pediatrics 01/25/21 03/25/24 documented as of this encounter
--- OUTSIDE RECORDS SUMMARY | 2025-11-22 08:03 | XMS_ITS | Encounter Summary ---
Author Organization [facility] Address [address] [place] [address] Phone Care Team Providers Care Equipment Sales Specialist Name Role Phone Tej De Luna MD Primary Care Provider [phone] Encounter Details Date Type Department Care Team (Late st Contact Info) Description 01/27/2020 Patient Outreach [facility] [address] [address] Andrew Zimmerman [place] Social History Tobacco Use Types Packs/Day Years [...] on filedocumented in this encounter Care Teams Equipment Sales Specialist Relationship Specialty Start Date End Date Tje De Luna MD [address] [place] [address] [place] Diaz [address] PCP - General Pediatrics 01/25/21 03/25/24 documented as of this encounter
--- OUTSIDE RECORDS SUMMARY | 2025-11-22 08:03 | XMS_ITS | Encounter Summary ---
Author Organization [facility] Address [address] [place], [place] [phone] Phone Care Team Providers Care Geotechnical Laboratory Technician Name Role Phone Tej De Luna MD Primary Care Provider [phone] Encounter Details Date Type Department Care Team (Late st Contact Info) Description 12/22/2013 Documentation [facility] [place] Family Medicine [address] [place] [address] Family Medicine, Physician [address] [place], [place] [address] Social History Tobacco Use Types Packs/Day Years [...] on filedocumented in this encounter Care Teams Geotechnical Laboratory Technician Relationship Specialty Start Date End Date Tej De Luna MD [address] [place] [address] [place] [address] PCP - General Pediatrics 01/25/21 03/25/24 documented as of this encounter
--- OUTSIDE RECORDS SUMMARY | 2025-11-22 08:03 | XMS_ITS | Encounter Summary ---
Author Organization [facility] Address [address] [place] [address] Phone Care Team Providers Care Hse Specialist Name Role Phone Tej De Luna MD Primary Care Provider [phone] Reason for Visit * Reason Comments Med Refill Encounter Details Date Type Department Care Team (Late st Contact Info) Description 02/12/2018 Refill [facility] [place] [address] [place] [address] Leeann Martin MD 150 [place] [address] Mild intermittent asthma without complication (Primary Dx) [...] Primary documented in this encounter Care Teams Hse Specialist Relationship Specialty Start Date End Date Tej De Luna MD 150 [facility] [place] Diaz [address] PCP - General Pediatrics 01/25/21 03/25/24 documented as of this encounter
--- OUTSIDE RECORDS SUMMARY | 2025-11-22 08:03 | XMS_ITS | Encounter Summary ---
Author Organization [facility] Address [address] [place], [place] [phone] Phone Care Team Providers Care Principal Systems Architect Name Role Phone Tej De Luna MD Primary Care Provider [phone] Encounter Details Date Type Department Care Team (Late st Contact Info) Description 02/04/2013 Documentation [facility] [place] Family Medicine [address] [place] [address] Family Medicine, Physician [address] [place], [place] [address] Social History Tobacco Use Types Packs/Day Years [...] on filedocumented in this encounter Care Teams Principal Systems Architect Relationship Specialty Start Date End Date Tej De Luna MD [address] [place] [address] [place] [address] PCP - General Pediatrics 01/25/21 03/25/24 documented as of this encounter
--- OUTSIDE RECORDS SUMMARY | 2025-11-22 08:03 | XMS_ITS | Encounter Summary ---
Author Organization [facility] Address [address] [place], [place] [address] Phone Care Team Providers Care Betting Clerk Name Role Phone Tej De Luna MD Primary Care Provider [phone] Encounter Details Date Type Department Care Team (Late st Contact Info) Description 10/10/2014 Documentation [facility] [place] [address] [place] [address] Family Medicine, Physician [address] [place], [place] [address] Social History Tobacco Use Types Packs/Day Years [...] on filedocumented in this encounter Care Teams Betting Clerk Relationship Specialty Start Date End Date Tej De Luna MD [address] [place] [address] [place] [address] PCP - General Pediatrics 01/25/21 03/25/24 documented as of this encounter
--- OUTSIDE RECORDS SUMMARY | 2025-11-22 08:03 | XMS_ITS | Encounter Summary ---
Author Organization [facility] Address [address] [place] [address] Phone Care Team Providers Care Coal Drier Operator Name Role Phone Tej De Luna MD Primary Care Provider [phone] Reason for Visit * Reason Onset Date Comments Med Refill 08/17/2023 Encounter Details Date Type Department Care Team (Late st Contact Info) Description 08/17/2023 Refill [facility] [place] [address] [place] [address] Tej De Luna MD 150 [place] [address] Mild intermittent asthma without complication Social History [...] complication documented in this encounter Care Teams Coal Drier Operator Relationship Specialty Start Date End Date Tej De Luna MD [address] [place] [address] [place] Diaz [address] PCP - General Pediatrics 01/25/21 03/25/24 documented as of this encounter
--- OUTSIDE RECORDS SUMMARY | 2025-11-22 08:03 | XMS_ITS | Encounter Summary ---
Author Organization [facility] Address [address] [place], [place] [address] Phone Care Team Providers Care Food Processing Plant Manager Name Role Phone Tej De Luna MD Primary Care Provider [phone] Encounter Details Date Type Department Care Team (Late st Contact Info) Description 11/03/2013 Documentation [facility] [place] [address] [place] [address] Family Medicine, Physician [address] [place], [place] [address] Social History Tobacco Use Types Packs/Day Years [...] on filedocumented in this encounter Care Teams Food Processing Plant Manager Relationship Specialty Start Date End Date Tej De Luna MD [address] [place] [address] [place] [address] PCP - General Pediatrics 01/25/21 03/25/24 documented as of this encounter
--- OUTSIDE RECORDS SUMMARY | 2025-11-22 08:03 | XMS_ITS | Encounter Summary ---
Author Organization [facility] Address [address] [place], [place] [phone] Phone Care Team Providers Care Manual Arts Therapy Teacher Name Role Phone Tej De Luna MD Primary Care Provider Encounter Details Date Type Department Care Team (Late st Contact Info) Description 05/12/2015 Documentation [facility] [place] [address] [place] [address] Family Medicine, Physician [address] [place], [place] [address] Social History Tobacco Use Types Packs/Day Years [...] on filedocumented in this encounter Care Teams Manual Arts Therapy Teacher Relationship Specialty Start Date End Date Tej De Luna MD [address] [place] [address] [place] [address] PCP - General Pediatrics 01/25/21 03/25/24 documented as of this encounter
--- OUTSIDE RECORDS SUMMARY | 2025-11-22 08:03 | XMS_ITS | Encounter Summary ---
Author Organization [facility] Address [address] [place], [place] [address] Phone Care Team Providers Care Restaurant Maintenance Technician Name Role Phone Tej De Luna MD Primary Care Provider [phone] Encounter Details Date Type Department Care Team (Late st Contact Info) Description 11/07/2014 Documentation [facility] [place] Family Medicine [address] [place] [address] Family Medicine, Physician [address] [place], [place] [address] Social History Tobacco Use Types Packs/Day Years [...] on filedocumented in this encounter Care Teams Restaurant Maintenance Technician Relationship Specialty Start Date End Date Tej De Luna MD [address] [place] [address] [place] [address] PCP - General Pediatrics 01/25/21 03/25/24 documented as of this encounter
--- OUTSIDE RECORDS SUMMARY | 2025-11-22 08:03 | XMS_ITS | Encounter Summary ---
Author Organization [facility] Address [address] [place], [place] [address] Phone Care Team Providers Care Municipal Bond Trader Name Role Phone Tej De Luna MD Primary Care Provider [phone] Encounter Details Date Type Department Care Team (Late st Contact Info) Description 08/14/2011 Documentation [facility] [place] Family Medicine [address] [place] [address] Family Medicine, Physician [address] [place], [place] [address] Social History Tobacco Use Types Packs/Day Years [...] on filedocumented in this encounter Care Teams Municipal Bond Trader Relationship Specialty Start Date End Date Tej De Luna MD [address] [place] [address] [place] [address] PCP - General Pediatrics 01/25/21 03/25/24 documented as of this encounter
--- OUTSIDE RECORDS SUMMARY | 2025-11-22 08:03 | XMS_ITS | Encounter Summary ---
Author Organization [facility] Address [address] [place], [place] [address] Phone Care Team Providers Care Pan Tank Worker Name Role Phone Tej De Luna MD Primary Care Provider [phone] Encounter Details Date Type Department Care Team (Late st Contact Info) Description 02/14/2014 Documentation [facility] [place] [address] [place] [address] Family Medicine, Physician [address] [place], [place] [address] Social History Tobacco Use Types Packs/Day Years [...] on filedocumented in this encounter Care Teams Pan Tank Worker Relationship Specialty Start Date End Date Tej De Luna MD [address] [place] [address] [place] [address] PCP - General Pediatrics 01/25/21 03/25/24 documented as of this encounter
--- OUTSIDE RECORDS SUMMARY | 2025-11-22 08:03 | XMS_ITS | Encounter Summary ---
Author Organization [facility] Address [address] [place] [address] Phone Care Team Providers Care Proposal Engineer Name Role Phone Tej De Luna MD Primary Care Provider [phone] Encounter Details Date Type Department Care Team (Late st Contact Info) Description 07/23/2017 Documentation [facility] [place] Family Medicine [address] [place] [address] Family Medicine, Physician [address] [place] [address] Social History Tobacco Use Types Packs/Day Years [...] on filedocumented in this encounter Care Teams Proposal Engineer Relationship Specialty Start Date End Date Tej De Luna MD [address] [place] [address] [place] [address] PCP - General Pediatrics 01/25/21 03/25/24 documented as of this encounter
--- OUTSIDE RECORDS SUMMARY | 2025-11-22 08:03 | XMS_ITS | Encounter Summary ---
Author Organization [facility] Address [address] [place], [place] [id number] Phone Care Team Providers Care Counseling Department Chair Name Role Phone Tej De Luna MD Primary Care Provider [phone] Encounter Details Date Type Department Care Team (Late st Contact Info) Description 05/12/2015 Documentation [facility] [place] Family Medicine [address] [place] [address] Family Medicine, Physician [address] [place], [place] [address] Social History Tobacco Use Types Packs/Day Years [...] on filedocumented in this encounter Care Teams Counseling Department Chair Relationship Specialty Start Date End Date Tej De Luna MD [address] [place] [address] [place] [address] PCP - General Pediatrics 01/25/21 03/25/24 documented as of this encounter
--- OUTSIDE RECORDS SUMMARY | 2025-11-22 08:03 | XMS_ITS | Encounter Summary ---
Author Organization [facility] Address [address] [place], [place] [id number] Phone Care Team Providers Care Water Systems Designer Name Role Phone Tej De Luna MD Primary Care Provider [phone] Encounter Details Date Type Department Care Team (Late st Contact Info) Description 07/17/2017 Conversion Encounter [facility] [address] [place] [address] Social History Tobacco Use Types Packs/Day Years [...] on filedocumented in this encounter Care Teams Water Systems Designer Relationship Specialty Start Date End Date Tej De Luna MD [address] [place] [address] PCP - General Pediatrics 01/25/21 03/25/24 documented as of this encounter
--- OUTSIDE RECORDS SUMMARY | 2025-11-22 08:03 | XMS_ITS | Encounter Summary ---
Author Organization [facility] Address [address] [place], [place] [id number] Phone Care Team Providers Care Kelp Cutter Name Role Phone Tej De Luna MD Primary Care Provider [phone] Encounter Details Date Type Department Care Team (Late st Contact Info) Description 10/06/2014 Documentation [facility] [place] [address] [place] [address] Family Medicine, Physician [address] [place], [place] [address] Social History Tobacco Use Types Packs/Day Years [...] on filedocumented in this encounter Care Teams Kelp Cutter Relationship Specialty Start Date End Date Tej De Luna MD [address] [place] [address] [place] [address] PCP - General Pediatrics 01/25/21 03/25/24 documented as of this encounter
--- OUTSIDE RECORDS SUMMARY | 2025-11-22 08:03 | XMS_ITS | Encounter Summary ---
Author Organization [facility] Address [address] [place], [place] [address] Phone Care Team Providers Care Team Otr Truck Driver Name Role Phone Tej De Luna MD Primary Care Provider [phone] Encounter Details Date Type Department Care Team (Late st Contact Info) Description 01/01/2013 Documentation [facility] [place] Family Medicine [address] [place] [address] Family Medicine, Physician [address] [place], [place] [address] Social History Tobacco Use Types Packs/Day Years [...] on filedocumented in this encounter Care Teams Team Otr Truck Driver Relationship Specialty Start Date End Date Tej De Luna MD [address] [place] [address] [place] [id number] PCP - General Pediatrics 01/25/21 03/25/24 documented as of this encounter
== END 2025-11-22 08:01 | disposition home or self-care (01) ==
LOC: HO.US 08:00
PROVIDERS: PCP Nurse Practitioner Family; Visit Provider Surgery
DX: G47.33 Obstructive sleep apnea (adult) (pediatric) (principal); E66.01 Morbid (severe) obesity due to excess calories; E03.9 Hypothyroidism, unspecified; E78.5 Hyperlipidemia, unspecified; Z99.89 Dependence on other enabling machines and devices
CPT/HCPCS: 76700; 76981

== ENCOUNTER → 2025-11-22 08:02 | Outpatient (BNV) | payer OTHER, SELFPAY | PROVIDERS: PCP Nurse Practitioner Family; Visit Provider Radiology Diagnostic Radiology | DX: K76.0 Fatty (change of) liver, not elsewhere classified (principal); R16.0 Hepatomegaly, not elsewhere classified | CPT/HCPCS: 76700 ==